=== PATIENT | male | born 1950 | race Caucasian/White ===

== ENCOUNTER 2021-08-22 16:47 | Inpatient (IN) ==
[2021-08-22] MEDS ORDERED: Artificial Tears SOLN 15 ML BOTTLE BOTH EYES PRN (19:22)
[2021-08-22] MEDS ORDERED: Amiodarone Premix 360 MG/200 ML BAG IVC ONE (19:34)
[2021-08-22] MEDS ORDERED: Naloxone 0.4 MG/ML INJ IVP PRN (19:37)
[2021-08-22] MEDS: FentaNYL (PF) 1,000 MCG/100 ML IV.SOLN IVC SCH (20:26)
[2021-08-22] MEDS: Amiodarone Premix 360 MG/200 ML BAG IVC ONE (20:26)
[2021-08-22 20:35] LABS: Hemoglobin 8.3 g/dL (12.9-16.9)
[2021-08-22 20:37] LABS: Hematocrit 32.4 % (37.5-50.1); Mean Corpuscular HGB Conc 25.6 g/dL (31.6-35.5); Mean Corpuscular Hemoglobin 26.7 pg (28.0-33.3); Mean Corpuscular Volume 104.2 fL (83.0-100.0); Mean Platelet Volume 9.5 fL (9.4-12.4); Platelet Count 433 K/mcL (140-400); Red Blood Count 3.11 M/mcL (4.19-5.50); Red Cell Distribution Width 17.5 % (11.5-14.5)
[2021-08-22 20:40] LABS: White Blood Count 41.5 K/mcL (4.3-11.1)
[2021-08-22 20:46] LABS: INR 1.4; Prothrombin Time 15.3 Seconds (9.4-12.1)
[2021-08-22 20:49] LABS: Activated Partial Thrombo Time 35.5 Seconds (26.0-36.0)
[2021-08-22 20:57] LABS: Albumin 3.4 g/dL (3.5-5.7); Albumin/Globulin Ratio 1.5 (1.1-2.2); Bilirubin,Direct 0.1 mg/dL (0.0-0.2); Bilirubin,Indirect 0.2 mg/dL (0.0-1.0); Bilirubin,Total 0.3 mg/dL (0.3-1.0); Calcium 8.6 mg/dL (8.6-10.3); Globulin 2.2 g/dL (2.4-3.5); Phosphorous 10.7 mg/dL (2.7-4.5); Potassium 7.4 mEq/L (3.5-5.1); Total Protein 5.6 g/dL (6.4-8.9)
[2021-08-22 21:09] LABS: Lymphocytes # 3.3 K/mcL (0.6-4.6); Monocytes # 2.5 K/mcL (0.0-1.3); Neutrophils # 35.7 K/mcL (1.6-8.9)
[2021-08-22 21:10] LABS: Hypochromasia Present (Not Present); Ovalocytes 1+ (Not Present)
[2021-08-22 21:12] LABS: Anisocytosis 1+ (Not Present)
[2021-08-22 21:18] LABS: ABG Base Excess -27 mEq/L (-2 to 3); ABG HCO3 4 mEq/L (21-27); ABG Oxygen Saturation 99 % (95-98); ABG PCO2 22 mmHg (35-45); ABG PH 6.91 pH Units (7.32-7.45); ABG PO2 185 mmHg (85-104); ABG TCO2 < 5 mEq/L (20-26); Blood Gas Modality AF; Blood Gas VT 500 cc
[2021-08-22] MEDS ORDERED: Furosemide 40 MG/4 ML VIAL IVP ONE (21:39)
[2021-08-22] MEDS: Norepinephrine 4 MG/254 ML IV.SOLN IVC SCH ×2 (21:43→23:32)
[2021-08-22] MEDS: Vasopressin 40 UNIT in D5% in Water 100 ML IVC SCH (21:43)
[2021-08-22] MEDS ORDERED: SODIUM ZIRCONIUM CYCLOSILICATE 5 GM POWD.PACK PO SCH (21:45)
[2021-08-22] MEDS: Chlorhexidine Rinse 15 ML MOUTHWASH MM SCH (21:46)
[2021-08-22] MEDS: Artificial Tears SOLN 15 ML BOTTLE BOTH EYES SCH ×2 (21:46→23:46)
[2021-08-22] MEDS ORDERED: Vancomycin 1,500 MG/265 ML IV.SOLN IVPB ONE (22:00)
[2021-08-22] MEDS: Albumin Human 5% 12.5 GM/250 ML IV.SOLN IVC SCH (22:10)
[2021-08-22] MEDS ORDERED: SODIUM ZIRCONIUM CYCLOSILICATE 5 GM POWD.PACK PO ONE (22:15)
[2021-08-22] MEDS ORDERED: Phenylephrine 10 MG in 0.9 % Sodium Chloride 250 ML IVC SCH (23:15)
[2021-08-22] MEDS: *HR* Heparin 5,000 UNIT/ML VIAL SQ SCH (23:31)
[2021-08-23] MEDS: Amiodarone Premix 360 MG/200 ML BAG IVC ONE (01:12)
[2021-08-23] MEDS: Norepinephrine 4 MG/254 ML IV.SOLN IVC SCH ×6 (01:23→16:19)
[2021-08-23] MEDS: Phenylephrine 50 MG in 0.9 % Sodium Chloride 250 ML IVC SCH ×3 (01:23→08:39)
[2021-08-23] MEDS: Albumin Human 5% 12.5 GM/250 ML IV.SOLN IVC SCH ×2 (01:35→02:56)
[2021-08-23 02:45] LABS: VBG Ionized Calcium 0.95 mmol/L (1.15-1.35)
[2021-08-23] MEDS ORDERED: Calcium Chloride 2,000 MG in 0.9 % Sodium Chloride 100 ML IVPB ONE (02:47)
[2021-08-23 02:48] LABS: Basophils % 0.2 %; Hemoglobin 7.4 g/dL (12.9-16.9); Immature Granulocytes % 3.5 % (0-4); Segmented Neutrophils % 86.6 %
[2021-08-23 02:49] LABS: Basophils # 0.1 K/mcL (0.0-0.2); Hematocrit 29.3 % (37.5-50.1); Lymphocytes # 1.5 K/mcL (0.6-4.6); Lymphocytes % 3.9 %; Mean Corpuscular HGB Conc 25.3 g/dL (31.6-35.5); Mean Corpuscular Hemoglobin 26.2 pg (28.0-33.3); Mean Corpuscular Volume 103.9 fL (83.0-100.0); Mean Platelet Volume 9.4 fL (9.4-12.4); Monocytes # 2.2 K/mcL (0.0-1.3); Monocytes % 5.8 %; Nucleated Red Blood Cells 0.1 /100 WBC (0); Platelet Count 387 K/mcL (140-400); Red Blood Count 2.82 M/mcL (4.19-5.50); Red Cell Distribution Width 17.2 % (11.5-14.5)
[2021-08-23 02:57] LABS: Neutrophils # 32.5 K/mcL (1.6-8.9)
[2021-08-23 02:58] LABS: White Blood Count 37.5 K/mcL (4.3-11.1)
[2021-08-23] MEDS: FentaNYL (PF) 1,000 MCG/100 ML IV.SOLN IVC SCH ×4 (03:02→20:00)
[2021-08-23] MEDS: Sodium Bicarbonate 150 MEQ in D5% in Water 1,000 ML IVC SCH ×3 (03:02→21:01)
[2021-08-23 03:14] LABS: Calcium 6.8 mg/dL (8.6-10.3); Magnesium 1.5 mg/dL (1.6-2.6); Potassium 5.4 mEq/L (3.5-5.1)
[2021-08-23] MEDS: Artificial Tears SOLN 15 ML BOTTLE BOTH EYES SCH ×5 (03:14→19:48)
[2021-08-23 03:27] LABS: Platelet Estimate Normal (Normal)
[2021-08-23 03:28] LABS: Hypochromasia Present (Not Present)
[2021-08-23] MEDS ORDERED: D5% in Water 1,000 ML IVC PRN (03:55)
[2021-08-23] MEDS ORDERED: *HR* Dextrose 50 % in Water (Syg) 50 ML SYRINGE IVP PRN (03:55)
[2021-08-23] MEDS ORDERED: Dextrose Gel 15 GM/37.5 ML TUBE PO PRN ×2 (03:55)
[2021-08-23] MEDS ORDERED: Hydrocortisone Sodium Succ 100 MG/2 ML VIAL IVP ONE (03:56)
[2021-08-23] MEDS: Insulin LISPRO 300 UNITS/3 ML VIAL SUBQ SCH ×5 (04:15→19:47)
[2021-08-23] MEDS: Dexmedetomidine HCl 400 MCG/100 ML MLS IVC SCH ×5 (04:15→21:57)
[2021-08-23 04:29] LABS: ABG Base Excess -25 mEq/L (-2 to 3); ABG HCO3 5 mEq/L (21-27); ABG Oxygen Saturation 99 % (95-98); ABG PCO2 22 mmHg (35-45); ABG PH 6.98 pH Units (7.32-7.45); ABG PO2 171 mmHg (85-104); ABG TCO2 6 mEq/L (20-26); Blood Gas Modality ASSIST CONTROL; Blood Gas VT 500 cc
[2021-08-23] MEDS: Amiodarone Premix 360 MG/200 ML BAG IVC SCH ×3 (04:40→20:00)
[2021-08-23 04:54] LABS: Adenovirus F 40/41 PCR Not detected (Not detect); Astrovirus PCR Not detected (Not detect); C.difficile Toxin A/B Gene PCR Not detected (Not detect); Campylobacter by PCR Not detected (Not detect); Cryptosporidium by PCR Not detected (Not detect); Cyclospora cayetanensis PCR Not detected (Not detect); Entamoeba histolytica PCR Not detected (Not detect); Enteroaggregative E.coli(EAEC) Not detected (Not detect); Enteropathogenic E.coli(EPEC) Not detected (Not detect); Enterotoxigenic E.coli (ETEC) Not detected (Not detect); Giardia lamblia PCR Not detected (Not detect); Norovirus GI/GII PCR Not detected (Not detect); Plesiomonas shigelloides PCR Not detected (Not detect); Rotavirus A PCR Not detected (Not detect); Salmonella PCR Not detected (Not detect); Sapovirus PCR Not detected (Not detect); Shig/EnteroinvasiveE coli EIEC Not detected (Not detect); Shigalike tox-prod E coli STEC Not detected (Not detect); Vibrio PCR Not detected (Not detect); Vibrio cholerae PCR Not detected (Not detect); Yersinia enterocolitica PCR Not detected (Not detect)
[2021-08-23] MEDS ORDERED: Amiodarone Premix 360 MG/200 ML BAG IVC ONE (07:34)
[2021-08-23] MEDS: *HR* Heparin 5,000 UNIT/ML VIAL SQ SCH ×2 (08:10→16:04)
[2021-08-23] MEDS: SODIUM ZIRCONIUM CYCLOSILICATE 5 GM POWD.PACK PO SCH ×2 (08:11→16:03)
[2021-08-23] MEDS: Chlorhexidine Rinse 15 ML MOUTHWASH MM SCH ×2 (08:11→19:48)
[2021-08-23] MEDS: Pantoprazole 40 MG VIAL IVP SCH (08:12)
[2021-08-23 08:38] LABS: Bacteria,Urine Few per hpf (None-Few); Bilirubin,Urine Negative (Negative); Blood,Urine Moderate (Negative); Clarity,Urine Turbid (Clear); Color,Urine Light-Yellow (Yellow); Glucose,Urine (UA) 70 mg/dL (Normal); Ketones,Urine 10 mg/dL (Negative); Leukocyte Esterase,Urine Moderate (Negative); Mucus,Urine Few per lpf (None-Few); Nitrite,Urine Negative (Negative); PH,Urine 5.5 pH Units (5.0-8.0); Protein,Urine 30 mg/dL (Neg-Trace); Renal Epithelial Cells,Urine Few per hpf (None-Few); Squamous Epithelial Cell,Urine Few per hpf (None-Few); Transitional Epi Cells,Urine Moderate per hpf (None-Few); Urobilinogen,Urine Normal (Normal); WBC,Urine 30-50 per hpf (0-3)
[2021-08-23 10:55] LABS: ABG Base Excess -15 mEq/L (-2 to 3); ABG HCO3 10 mEq/L (21-27); ABG Oxygen Saturation 98 % (95-98); ABG PCO2 20 mmHg (35-45); ABG PH 7.31 pH Units (7.32-7.45); ABG PO2 110 mmHg (85-104); ABG TCO2 11 mEq/L (20-26); Blood Gas Modality ASSIST CONTROL; Blood Gas VT 500 cc
[2021-08-23] MEDS ORDERED: Micafungin 100 MG in 0.9 % Sodium Chloride Mini Bag 100 ML IVPB SCH (12:00)
[2021-08-23] MEDS: Vasopressin 40 UNIT in D5% in Water 100 ML IVC SCH (13:54)
[2021-08-23] MEDS ORDERED: *HR* Heparin 5,000 UNIT/ML VIAL IVP PRN (15:30)
[2021-08-23] MEDS: Cefepime HCl 1,000 MG in Water for inj. (sterile) 10 ML IVP SCH (16:06)
[2021-08-23] MEDS ORDERED: 0.9 % Sodium Chloride 1,000 ML ONE (17:15)
[2021-08-23 17:52] LABS: Bacteria,Urine Few per hpf (None-Few); Bilirubin,Urine Negative (Negative); Blood,Urine Small (Negative); Clarity,Urine Clear (Clear); Color,Urine Colorless (Yellow); Glucose,Urine (UA) Normal (Normal); Ketones,Urine 10 mg/dL (Negative); Leukocyte Esterase,Urine Negative (Negative); Mucus,Urine Few per lpf (None-Few); Nitrite,Urine Negative (Negative); Protein,Urine Trace mg/dL (Neg-Trace); RBC,Urine 0-3 per hpf (0-3); Specific Gravity,Urine 1.009 (1.010-1.025); Urobilinogen,Urine Normal (Normal)
[2021-08-23 17:53] LABS: Sodium, Urine 100.9 mEq/L
[2021-08-23] MEDS: PrismaSATE BGK 4/2.5 5,000 ML CRRT SCH ×4 (18:00→21:59)
[2021-08-23 19:57] LABS: Calcium 7.8 mg/dL (8.6-10.3); Potassium 5.6 mEq/L (3.5-5.1)
[2021-08-23] MEDS ORDERED: Perflutren Lipid Microsphere 1.3 ML in 0.9 % Sodium Chloride 8.7 ML IVP PRN (20:30)
[2021-08-23] MEDS ORDERED: Meropenem 1,000 MG in 0.9 % Sodium Chloride Mini Bag 100 ML IVPB SCH ×2 (23:00)
[2021-08-24] MEDS: *HR* Heparin 5,000 UNIT/ML VIAL SQ SCH ×4 (00:35→23:35)
[2021-08-24] MEDS: Artificial Tears SOLN 15 ML BOTTLE BOTH EYES SCH ×7 (00:35→23:35)
[2021-08-24] MEDS: Insulin LISPRO 300 UNITS/3 ML VIAL SUBQ SCH ×6 (00:35→20:08)
[2021-08-24] MEDS: FentaNYL (PF) 1,000 MCG/100 ML IV.SOLN IVC SCH ×5 (00:35→20:50)
[2021-08-24] MEDS: PrismaSATE BGK 4/2.5 5,000 ML CRRT SCH ×12 (01:09→22:09)
[2021-08-24] MEDS: Dexmedetomidine HCl 400 MCG/100 ML MLS IVC SCH ×6 (01:30→20:09)
[2021-08-24] MEDS ORDERED: 0.9 % Sodium Chloride 2,000 ML ONE ×2 (02:25→14:12)
[2021-08-24] MEDS: Cefepime HCl 1,000 MG in Water for inj. (sterile) 10 ML IVP SCH (03:13)
[2021-08-24 03:23] LABS: VBG Ionized Calcium 0.93 mmol/L (1.15-1.35)
[2021-08-24 03:36] LABS: Albumin 3.2 g/dL (3.5-5.7); Bilirubin,Direct 0.1 mg/dL (0.0-0.2); Bilirubin,Indirect 0.4 mg/dL (0.0-1.0); Bilirubin,Total 0.5 mg/dL (0.3-1.0); Calcium 7.9 mg/dL (8.6-10.3); Globulin 1.6 g/dL (2.4-3.5); Magnesium 1.8 mg/dL (1.6-2.6); Potassium 4.6 mEq/L (3.5-5.1); Total Protein 4.8 g/dL (6.4-8.9)
[2021-08-24 04:10] LABS: Basophils % 0.2 %; Eosinophils % 0.2 %; Hematocrit 25.6 % (37.5-50.1); Hemoglobin 8.1 g/dL (12.9-16.9); Immature Granulocytes % 0.8 % (0-4); Lymphocytes # 0.4 K/mcL (0.6-4.6); Lymphocytes % 3.7 %; Mean Corpuscular HGB Conc 31.6 g/dL (31.6-35.5); Mean Corpuscular Hemoglobin 26.6 pg (28.0-33.3); Mean Corpuscular Volume 84.2 fL (83.0-100.0); Mean Platelet Volume 9.7 fL (9.4-12.4); Monocytes # 0.5 K/mcL (0.0-1.3); Monocytes % 4.5 %; Platelet Count 211 K/mcL (140-400); Red Blood Count 3.04 M/mcL (4.19-5.50); Red Cell Distribution Width 17.5 % (11.5-14.5); Segmented Neutrophils % 90.6 %
[2021-08-24 04:11] LABS: Neutrophils # 10.9 K/mcL (1.6-8.9)
[2021-08-24 04:21] LABS: ABG Base Excess -2 mEq/L (-2 to 3); ABG HCO3 19 mEq/L (21-27); ABG Oxygen Saturation 99 % (95-98); ABG PCO2 19 mmHg (35-45); ABG PH 7.61 pH Units (7.32-7.45); ABG PO2 90 mmHg (85-104); ABG TCO2 19 mEq/L (20-26); Blood Gas Modality ASSIST CONTROL; Blood Gas VT 500 cc
[2021-08-24] MEDS ORDERED: Calcium Chloride 2,000 MG in 0.9 % Sodium Chloride 100 ML IVPB ONE (05:00)
[2021-08-24] MEDS: Sodium Bicarbonate 150 MEQ in D5% in Water 1,000 ML IVC SCH (05:16)
[2021-08-24] MEDS: Vasopressin 40 UNIT in D5% in Water 100 ML IVC SCH (05:17)
[2021-08-24 06:06] LABS: ABG Base Excess -2 mEq/L (-2 to 3); ABG HCO3 21 mEq/L (21-27); ABG Oxygen Saturation 99 % (95-98); ABG PCO2 25 mmHg (35-45); ABG PH 7.53 pH Units (7.32-7.45); ABG PO2 115 mmHg (85-104); ABG TCO2 21 mEq/L (20-26); Blood Gas Modality ASSIST CONTROL; Blood Gas VT 500 cc
[2021-08-24] MEDS: Amiodarone Premix 360 MG/200 ML BAG IVC SCH (08:02)
[2021-08-24] MEDS: Micafungin 100 MG in 0.9 % Sodium Chloride Mini Bag 100 ML IVPB SCH (08:03)
[2021-08-24] MEDS: Chlorhexidine Rinse 15 ML MOUTHWASH MM SCH ×2 (08:11→20:08)
[2021-08-24] MEDS: Pantoprazole 40 MG VIAL IVP SCH (08:12)
[2021-08-24] MEDS: Cefepime HCl 2,000 MG in Water for inj. (sterile) 20 ML IVP SCH ×2 (08:15→20:08)
[2021-08-24] MEDS ORDERED: Vancomycin 1,750 MG/517.5 ML IV.SOLN IVPB ONE (09:00)
[2021-08-24] MEDS: Norepinephrine 4 MG/254 ML IV.SOLN IVC SCH ×3 (09:01→22:52)
[2021-08-24] MEDS ORDERED: *HR* Metoprolol 5 MG/5 ML VIAL IVP PRN (10:47)
[2021-08-25] MEDS: Dexmedetomidine HCl 400 MCG/100 ML MLS IVC SCH ×4 (00:03→17:28)
[2021-08-25] MEDS: Insulin LISPRO 300 UNITS/3 ML VIAL SUBQ SCH ×6 (00:08→20:13)
[2021-08-25] MEDS: FentaNYL (PF) 1,000 MCG/100 ML IV.SOLN IVC SCH ×2 (02:03→06:43)
[2021-08-25] MEDS: PrismaSATE BGK 4/2.5 5,000 ML CRRT SCH ×8 (02:04→14:26)
[2021-08-25] MEDS: Artificial Tears SOLN 15 ML BOTTLE BOTH EYES SCH ×5 (03:19→20:37)
[2021-08-25 03:35] LABS: VBG Ionized Calcium 1.06 mmol/L (1.15-1.35)
[2021-08-25 03:53] LABS: Basophils % 0.3 %; Eosinophils # 0.2 K/mcL (0.0-0.6); Eosinophils % 2.6 %; Hematocrit 25.2 % (37.5-50.1); Hemoglobin 7.3 g/dL (12.9-16.9); Immature Granulocytes % 0.5 % (0-4); Lymphocytes # 0.7 K/mcL (0.6-4.6); Lymphocytes % 7.3 %; Mean Corpuscular Hemoglobin 25.3 pg (28.0-33.3); Mean Corpuscular Volume 87.5 fL (83.0-100.0); Mean Platelet Volume 10.2 fL (9.4-12.4); Monocytes # 0.5 K/mcL (0.0-1.3); Neutrophils # 7.4 K/mcL (1.6-8.9); Platelet Count 157 K/mcL (140-400); Red Blood Count 2.88 M/mcL (4.19-5.50); Segmented Neutrophils % 83.3 %; White Blood Count 8.9 K/mcL (4.3-11.1)
[2021-08-25 04:18] LABS: Alanine Aminotransferase 7 Units/L (7-52); Albumin 2.7 g/dL (3.5-5.7); Albumin/Globulin Ratio 1.4 (1.1-2.2); Alkaline Phosphatase 83 Units/L (34-104); Aspartate Amino Transferase 11 Units/L (13-39); BUN/Creatinine Ratio 14 (6-26); Bilirubin,Direct 0.2 mg/dL (0.0-0.2); Bilirubin,Indirect 0.5 mg/dL (0.0-1.0); Bilirubin,Total 0.7 mg/dL (0.3-1.0); Blood Urea Nitrogen 15 mg/dL (8-23); Calcium 7.4 mg/dL (8.6-10.3); Carbon Dioxide 22 mEq/L (23-29); Chloride 105 mEq/L (98-107); Glucose 127 mg/dL (70-105); Magnesium 2.3 mg/dL (1.6-2.6); Osmolality,Calculated 286 (280-300); Phosphorous 1.2 mg/dL (2.7-4.5); Potassium 3.8 mEq/L (3.5-5.1); Sodium 137 mEq/L (136-145); Total Protein 4.7 g/dL (6.4-8.9); eGFR For African Americans > 60 (> 60); eGFR For Non-African Americans > 60 (> 60)
[2021-08-25 04:19] LABS: ABG Base Excess 1 mEq/L (-2 to 3); ABG HCO3 23 mEq/L (21-27); ABG Oxygen Saturation 98 % (95-98); ABG PCO2 25 mmHg (35-45); ABG PH 7.56 pH Units (7.32-7.45); ABG PO2 87 mmHg (85-104); ABG TCO2 23 mEq/L (20-26); Blood Gas Modality AF; Blood Gas VT 500 cc
[2021-08-25] MEDS: Calcium Gluconate 1gm/50mL 1 GM/50 ML BAG IVPB SCH ×2 (05:51→06:29)
[2021-08-25] MEDS ORDERED: 0.9 % Sodium Chloride 1,000 ML ONE ×2 (05:55→11:39)
[2021-08-25] MEDS: *HR* Heparin 5,000 UNIT/ML VIAL SQ SCH ×2 (08:01→17:12)
[2021-08-25] MEDS: Chlorhexidine Rinse 15 ML MOUTHWASH MM SCH ×2 (08:01→20:24)
[2021-08-25] MEDS: Cefepime HCl 2,000 MG in Water for inj. (sterile) 20 ML IVP SCH ×2 (08:01→20:24)
[2021-08-25] MEDS: Micafungin 100 MG in 0.9 % Sodium Chloride Mini Bag 100 ML IVPB SCH (08:02)
[2021-08-25] MEDS: Pantoprazole 40 MG VIAL IVP SCH (08:02)
[2021-08-25] MEDS ORDERED: Vancomycin 1,250 MG/262.5 ML IV.SOLN IVPB ONE (13:00)
[2021-08-25] MEDS: Norepinephrine 4 MG/254 ML IV.SOLN IVC SCH ×2 (13:07→20:11)
[2021-08-26] MEDS: Insulin LISPRO 300 UNITS/3 ML VIAL SUBQ SCH ×6 (00:35→19:41)
[2021-08-26] MEDS: *HR* Heparin 5,000 UNIT/ML VIAL SQ SCH ×3 (00:39→16:44)
[2021-08-26] MEDS: Artificial Tears SOLN 15 ML BOTTLE BOTH EYES SCH ×5 (00:40→16:35)
[2021-08-26] MEDS: Norepinephrine 4 MG/254 ML IV.SOLN IVC SCH (03:02)
[2021-08-26] MEDS: Dexmedetomidine HCl 400 MCG/100 ML MLS IVC SCH (04:35)
[2021-08-26 04:39] LABS: VBG Ionized Calcium 1.07 mmol/L (1.15-1.35)
[2021-08-26 04:42] LABS: Mean Platelet Volume 9.8 fL (9.4-12.4)
[2021-08-26 04:44] LABS: Basophils % 0.2 %; Eosinophils # 0.1 K/mcL (0.0-0.6); Hemoglobin 6.7 g/dL (12.9-16.9); Immature Granulocytes % 0.9 % (0-4); Lymphocytes # 0.6 K/mcL (0.6-4.6); Lymphocytes % 4.9 %; Mean Corpuscular HGB Conc 27.9 g/dL (31.6-35.5); Mean Corpuscular Hemoglobin 25.6 pg (28.0-33.3); Mean Corpuscular Volume 91.6 fL (83.0-100.0); Monocytes # 0.7 K/mcL (0.0-1.3); Monocytes % 6.4 %; Neutrophils # 9.9 K/mcL (1.6-8.9); Platelet Count 152 K/mcL (140-400); Red Blood Count 2.62 M/mcL (4.19-5.50); Red Cell Distribution Width 18.1 % (11.5-14.5); Segmented Neutrophils % 86.6 %; White Blood Count 11.4 K/mcL (4.3-11.1)
[2021-08-26 05:06] LABS: Albumin/Globulin Ratio 1.5 (1.1-2.2); Bilirubin,Direct 0.2 mg/dL (0.0-0.2); Bilirubin,Indirect 0.4 mg/dL (0.0-1.0); Bilirubin,Total 0.6 mg/dL (0.3-1.0); Calcium 7.8 mg/dL (8.6-10.3); Magnesium 2.2 mg/dL (1.6-2.6); Phosphorous 2.4 mg/dL (2.7-4.5); Potassium 3.7 mEq/L (3.5-5.1)
[2021-08-26 05:31] LABS: Anisocytosis 1+ (Not Present); Platelet Estimate Normal (Normal)
[2021-08-26] MEDS: Phenylephrine 50 MG in 0.9 % Sodium Chloride 250 ML IVC SCH (07:53)
[2021-08-26] MEDS ORDERED: 0.9 % Sodium Chloride 250 ML ONE (08:18)
[2021-08-26] MEDS: Chlorhexidine Rinse 15 ML MOUTHWASH MM SCH (08:26)
[2021-08-26] MEDS: Pantoprazole 40 MG VIAL IVP SCH (08:27)
[2021-08-26] MEDS: Cefepime HCl 2,000 MG in Water for inj. (sterile) 20 ML IVP SCH (08:27)
[2021-08-26] MEDS ORDERED: *HR* Metoprolol 5 MG/5 ML VIAL IVP PRN (17:18)
[2021-08-26] MEDS ORDERED: Naloxone 0.4 MG/ML INJ IVP PRN (17:18)
[2021-08-26] MEDS ORDERED: *HR* Dextrose 50 % in Water (Syg) 50 ML SYRINGE IVP PRN (17:18)
[2021-08-26] MEDS ORDERED: Dextrose Gel 15 GM/37.5 ML TUBE PO PRN ×2 (17:18)
[2021-08-26] MEDS ORDERED: D5% in Water 1,000 ML IVC PRN (17:18)
[2021-08-26] MEDS ORDERED: Artificial Tears SOLN 15 ML BOTTLE BOTH EYES PRN (17:18)
[2021-08-26 20:11] LABS: Hematocrit 24.7 % (37.5-50.1); Hemoglobin 7.2 g/dL (12.9-16.9)
[2021-08-27] MEDS: Acetaminophen 325 MG TABLET PO PRN ×2 (00:08→19:52)
[2021-08-27] MEDS: *HR* Heparin 5,000 UNIT/ML VIAL SQ SCH ×4 (00:09→23:58)
[2021-08-27 01:36] LABS: VBG Ionized Calcium 1.06 mmol/L (1.15-1.35)
[2021-08-27 01:36] LABS: Basophils % 0.2 %; Eosinophils # 0.1 K/mcL (0.0-0.6); Eosinophils % 1.7 %; Hematocrit 24.2 % (37.5-50.1); Hemoglobin 7.3 g/dL (12.9-16.9); Immature Granulocytes % 0.4 % (0-4); Lymphocytes # 0.4 K/mcL (0.6-4.6); Lymphocytes % 8.2 %; Mean Corpuscular HGB Conc 30.2 g/dL (31.6-35.5); Mean Corpuscular Hemoglobin 27.1 pg (28.0-33.3); Mean Platelet Volume 10.1 fL (9.4-12.4); Monocytes # 0.3 K/mcL (0.0-1.3); Monocytes % 6.1 %; Neutrophils # 4.4 K/mcL (1.6-8.9); Platelet Count 108 K/mcL (140-400); Red Blood Count 2.69 M/mcL (4.19-5.50); Red Cell Distribution Width 17.8 % (11.5-14.5); Segmented Neutrophils % 83.4 %; White Blood Count 5.3 K/mcL (4.3-11.1)
[2021-08-27 02:14] LABS: Albumin 2.8 g/dL (3.5-5.7); Albumin/Globulin Ratio 1.3 (1.1-2.2); Bilirubin,Direct 0.2 mg/dL (0.0-0.2); Bilirubin,Indirect 0.4 mg/dL (0.0-1.0); Bilirubin,Total 0.6 mg/dL (0.3-1.0); Calcium 7.7 mg/dL (8.6-10.3); Globulin 2.2 g/dL (2.4-3.5); Phosphorous 2.6 mg/dL (2.7-4.5); Potassium 3.3 mEq/L (3.5-5.1)
[2021-08-27] MEDS: Insulin LISPRO 300 UNITS/3 ML VIAL SUBQ SCH ×4 (07:29→21:44)
[2021-08-27] MEDS: Pantoprazole 40 MG VIAL IVP SCH (07:59)
[2021-08-27] MEDS ORDERED: Potassium Phosphate 44 MEQ in 0.9 % Sodium Chloride 250 ML IVPB ONE (17:12)
[2021-08-27] MEDS: Melatonin 3 MG TABLET PO SCH (18:37)
[2021-08-27] MEDS: Cholecalciferol (D-3) 1,000 UNIT (25MCG) TABLET PO SCH (19:52)
[2021-08-27] MEDS: valACYclovir 500 MG TABLET PO SCH (19:52)
[2021-08-27] MEDS: Gabapentin 300 MG CAPSULE PO SCH (19:53)
[2021-08-28 06:36] LABS: VBG Ionized Calcium 1.11 mmol/L (1.15-1.35)
[2021-08-28 06:40] LABS: Basophils % 0.2 %; Eosinophils # 0.2 K/mcL (0.0-0.6); Eosinophils % 2.7 %; Hemoglobin 7.1 g/dL (12.9-16.9); Immature Granulocytes % 0.5 % (0-4); Lymphocytes # 0.7 K/mcL (0.6-4.6); Lymphocytes % 11.9 %; Mean Corpuscular HGB Conc 29.6 g/dL (31.6-35.5); Mean Corpuscular Hemoglobin 26.9 pg (28.0-33.3); Mean Corpuscular Volume 90.9 fL (83.0-100.0); Mean Platelet Volume 10.5 fL (9.4-12.4); Monocytes # 0.4 K/mcL (0.0-1.3); Monocytes % 7.3 %; Neutrophils # 4.4 K/mcL (1.6-8.9); Platelet Count 134 K/mcL (140-400); Red Blood Count 2.64 M/mcL (4.19-5.50); Red Cell Distribution Width 17.6 % (11.5-14.5); Segmented Neutrophils % 77.4 %; White Blood Count 5.6 K/mcL (4.3-11.1)
[2021-08-28 06:51] LABS: Albumin 2.9 g/dL (3.5-5.7); Albumin/Globulin Ratio 1.5 (1.1-2.2); Bilirubin,Direct 0.2 mg/dL (0.0-0.2); Bilirubin,Indirect 0.3 mg/dL (0.0-1.0); Bilirubin,Total 0.5 mg/dL (0.3-1.0); Calcium 7.9 mg/dL (8.6-10.3); Magnesium 1.7 mg/dL (1.6-2.6); Phosphorous 3.6 mg/dL (2.7-4.5); Potassium 3.2 mEq/L (3.5-5.1); Total Protein 4.9 g/dL (6.4-8.9)
[2021-08-28] MEDS: Gabapentin 300 MG CAPSULE PO SCH ×2 (08:06→20:42)
[2021-08-28] MEDS: valACYclovir 500 MG TABLET PO SCH ×2 (08:06→20:42)
[2021-08-28] MEDS: Aspirin 81 MG TAB.CHEW PO SCH (08:06)
[2021-08-28] MEDS: Cyanocobalamin (B-12) 1,000 MCG TABLET PO SCH (08:06)
[2021-08-28] MEDS: Cholecalciferol (D-3) 1,000 UNIT (25MCG) TABLET PO SCH ×2 (08:06→20:42)
[2021-08-28] MEDS: Pantoprazole 40 MG VIAL IVP SCH (08:07)
[2021-08-28] MEDS: Metoprolol XL (24 HR) Succ 25 MG TAB.ER.24H PO SCH (08:07)
[2021-08-28] MEDS: *HR* Heparin 5,000 UNIT/ML VIAL SQ SCH ×3 (08:07→23:32)
[2021-08-28] MEDS: Insulin LISPRO 300 UNITS/3 ML VIAL SUBQ SCH ×4 (08:08→20:26)
[2021-08-28] MEDS ORDERED: Albumin 25% 25gram/100mL 25 GM/100 ML IV.SOLN IVPB SCH (16:00)
[2021-08-28] MEDS: Melatonin 3 MG TABLET PO SCH (16:43)
[2021-08-28] MEDS: Albumin 25% 25gram/100mL 25 GM/100 ML IV.SOLN IVPB SCH (18:04)
[2021-08-28] MEDS: Furosemide 40 MG/4 ML VIAL IVP SCH (20:42)
[2021-08-28] MEDS ORDERED: Furosemide 20 MG/2 ML VIAL IVP SCH (21:00)
[2021-08-29 02:31] LABS: Hemoglobin 7.5 g/dL (12.9-16.9); Lymphocytes % 13.4 %; Mean Corpuscular Volume 95.7 fL (83.0-100.0)
[2021-08-29 02:32] LABS: Basophils % 0.3 %; Eosinophils # 0.2 K/mcL (0.0-0.6); Eosinophils % 2.6 %; Hematocrit 26.6 % (37.5-50.1); Immature Granulocytes % 0.4 % (0-4); Mean Corpuscular HGB Conc 28.2 g/dL (31.6-35.5); Mean Platelet Volume 10.4 fL (9.4-12.4); Monocytes # 0.7 K/mcL (0.0-1.3); Neutrophils # 5.4 K/mcL (1.6-8.9); Platelet Count 147 K/mcL (140-400); Red Blood Count 2.78 M/mcL (4.19-5.50); Red Cell Distribution Width 18.1 % (11.5-14.5); Segmented Neutrophils % 74.3 %; White Blood Count 7.3 K/mcL (4.3-11.1)
[2021-08-29 02:34] LABS: VBG Ionized Calcium 0.78 mmol/L (1.15-1.35)
[2021-08-29 03:32] LABS: Bilirubin,Direct 0.1 mg/dL (0.0-0.2); Bilirubin,Indirect 0.3 mg/dL (0.0-1.0); Bilirubin,Total 0.4 mg/dL (0.3-1.0); Magnesium 1.8 mg/dL (1.6-2.6); Phosphorous 2.3 mg/dL (2.7-4.5); Potassium 3.4 mEq/L (3.5-5.1); Total Protein 5.3 g/dL (6.4-8.9)
[2021-08-29 03:33] LABS: Albumin 3.2 g/dL (3.5-5.7); Albumin/Globulin Ratio 1.5 (1.1-2.2); Calcium 7.7 mg/dL (8.6-10.3); Globulin 2.1 g/dL (2.4-3.5)
[2021-08-29] MEDS: Albumin 25% 25gram/100mL 25 GM/100 ML IV.SOLN IVPB SCH ×2 (05:38→17:39)
[2021-08-29] MEDS: Furosemide 40 MG/4 ML VIAL IVP SCH ×2 (09:05→20:22)
[2021-08-29] MEDS: *HR* Heparin 5,000 UNIT/ML VIAL SQ SCH ×3 (09:06→23:43)
[2021-08-29] MEDS: Cyanocobalamin (B-12) 1,000 MCG TABLET PO SCH (09:07)
[2021-08-29] MEDS: Cholecalciferol (D-3) 1,000 UNIT (25MCG) TABLET PO SCH ×2 (09:07→20:22)
[2021-08-29] MEDS: Aspirin 81 MG TAB.CHEW PO SCH (09:07)
[2021-08-29] MEDS: Metoprolol XL (24 HR) Succ 25 MG TAB.ER.24H PO SCH (09:07)
[2021-08-29] MEDS: valACYclovir 500 MG TABLET PO SCH ×2 (09:07→20:22)
[2021-08-29] MEDS: Gabapentin 300 MG CAPSULE PO SCH ×2 (09:08→20:22)
[2021-08-29] MEDS: Insulin LISPRO 300 UNITS/3 ML VIAL SUBQ SCH ×4 (09:35→20:25)
[2021-08-29] MEDS ORDERED: Calcium Gluconate 1gm/50mL 1 GM/50 ML BAG IVPB ONE (13:46)
[2021-08-29] MEDS: Melatonin 3 MG TABLET PO SCH (17:39)
[2021-08-30 05:33] LABS: VBG Ionized Calcium 1.01 mmol/L (1.15-1.35)
[2021-08-30 05:38] LABS: Hematocrit 22.2 % (37.5-50.1); Hemoglobin 6.5 g/dL (12.9-16.9)
[2021-08-30 05:51] LABS: BUN/Creatinine Ratio 11 (6-26); Blood Urea Nitrogen 15 mg/dL (8-23); Carbon Dioxide 27 mEq/L (23-29); Chloride 100 mEq/L (98-107); Glucose 164 mg/dL (70-105); Magnesium 1.4 mg/dL (1.6-2.6); Osmolality,Calculated 286 (280-300); Phosphorous 1.8 mg/dL (2.7-4.5); Potassium 3.3 mEq/L (3.5-5.1); Sodium 136 mEq/L (136-145); eGFR For African Americans > 60 (> 60); eGFR For Non-African Americans 51 (> 60)
[2021-08-30] MEDS ORDERED: 0.9 % Sodium Chloride 250 ML IVC SCH (07:30)
[2021-08-30] MEDS: Cyanocobalamin (B-12) 1,000 MCG TABLET PO SCH (07:49)
[2021-08-30] MEDS: valACYclovir 500 MG TABLET PO SCH ×2 (07:50→21:09)
[2021-08-30] MEDS: Cholecalciferol (D-3) 1,000 UNIT (25MCG) TABLET PO SCH ×2 (07:50→21:08)
[2021-08-30] MEDS: Aspirin 81 MG TAB.CHEW PO SCH (07:50)
[2021-08-30] MEDS: Metoprolol XL (24 HR) Succ 25 MG TAB.ER.24H PO SCH (07:50)
[2021-08-30] MEDS: Gabapentin 300 MG CAPSULE PO SCH ×2 (07:50→21:08)
[2021-08-30] MEDS: Insulin LISPRO 300 UNITS/3 ML VIAL SUBQ SCH ×4 (07:51→22:54)
[2021-08-30] MEDS: Furosemide 40 MG TABLET PO SCH ×2 (07:51→16:28)
[2021-08-30] MEDS ORDERED: Potassium Phosphate 44 MEQ in 0.9 % Sodium Chloride 250 ML IVPB ONE (12:30)
[2021-08-30] MEDS: Melatonin 3 MG TABLET PO SCH (16:28)
[2021-08-30 19:54] LABS: Hematocrit 25.1 % (37.5-50.1); Hemoglobin 7.3 g/dL (12.9-16.9)
[2021-08-30] MEDS: Acetaminophen 325 MG TABLET PO PRN (23:32)
[2021-08-31] MEDS: *HR* HYDROcodone/Acet 5/325 mg TABLET PO PRN ×2 (01:04→20:21)
[2021-08-31 01:44] LABS: Hematocrit 23.9 % (37.5-50.1); Hemoglobin 7.3 g/dL (12.9-16.9)
[2021-08-31 01:54] LABS: VBG Ionized Calcium 0.99 mmol/L (1.15-1.35)
[2021-08-31 02:04] LABS: Iron 35 mcg/dL (65-175)
[2021-08-31 02:05] LABS: BUN/Creatinine Ratio 13 (6-26); Blood Urea Nitrogen 17 mg/dL (8-23); Calcium 7.4 mg/dL (8.6-10.3); Carbon Dioxide 27 mEq/L (23-29); Chloride 97 mEq/L (98-107); Glucose 193 mg/dL (70-105); Magnesium 1.5 mg/dL (1.6-2.6); Osmolality,Calculated 281 (280-300); Phosphorous 3.1 mg/dL (2.7-4.5); Potassium 3.4 mEq/L (3.5-5.1); Sodium 132 mEq/L (136-145); eGFR For African Americans > 60 (> 60); eGFR For Non-African Americans 53 (> 60)
[2021-08-31 06:33] LABS: Hematocrit 23.4 % (37.5-50.1); Hemoglobin 6.8 g/dL (12.9-16.9)
[2021-08-31] MEDS ORDERED: 0.9 % Sodium Chloride 250 ML IVC SCH (07:45)
[2021-08-31] MEDS: Cyanocobalamin (B-12) 1,000 MCG TABLET PO SCH (08:10)
[2021-08-31] MEDS: Cholecalciferol (D-3) 1,000 UNIT (25MCG) TABLET PO SCH ×2 (08:10→20:21)
[2021-08-31] MEDS: Furosemide 40 MG TABLET PO SCH ×2 (08:10→16:56)
[2021-08-31] MEDS: Gabapentin 300 MG CAPSULE PO SCH ×2 (08:10→20:21)
[2021-08-31] MEDS: Metoprolol XL (24 HR) Succ 25 MG TAB.ER.24H PO SCH (08:10)
[2021-08-31] MEDS: valACYclovir 500 MG TABLET PO SCH ×2 (08:11→20:21)
[2021-08-31] MEDS: Insulin LISPRO 300 UNITS/3 ML VIAL SUBQ SCH ×4 (08:11→22:17)
[2021-08-31] MEDS: Melatonin 3 MG TABLET PO SCH (16:56)
[2021-08-31] MEDS: Acetaminophen 325 MG TABLET PO PRN (16:59)
[2021-08-31 17:06] LABS: Hemoglobin 8.1 g/dL (12.9-16.9)
[2021-08-31 18:58] LABS: Hematocrit 26.6 % (37.5-50.1)
[2021-09-01 03:39] LABS: Retculocyte # 0.1 M/mcL (0.05-0.10); Reticulocyte % 3.6 % (1.6-2.8)
[2021-09-01 03:40] LABS: Basophils % 0.3 %; Eosinophils # 0.2 K/mcL (0.0-0.6); Eosinophils % 2.1 %; Hematocrit 26.8 % (37.5-50.1); Lymphocytes # 0.5 K/mcL (0.6-4.6); Lymphocytes % 7.3 %; Mean Corpuscular HGB Conc 29.9 g/dL (31.6-35.5); Mean Corpuscular Hemoglobin 26.8 pg (28.0-33.3); Mean Corpuscular Volume 89.6 fL (83.0-100.0); Mean Platelet Volume 10.3 fL (9.4-12.4); Monocytes # 0.5 K/mcL (0.0-1.3); Monocytes % 6.6 %; Neutrophils # 5.9 K/mcL (1.6-8.9); Platelet Count 181 K/mcL (140-400); Red Blood Count 2.99 M/mcL (4.19-5.50); Red Cell Distribution Width 18.8 % (11.5-14.5); Segmented Neutrophils % 82.7 %; White Blood Count 7.1 K/mcL (4.3-11.1)
[2021-09-01 04:01] LABS: Magnesium 1.7 mg/dL (1.6-2.6); Phosphorous 2.6 mg/dL (2.7-4.5)
[2021-09-01 04:02] LABS: BUN/Creatinine Ratio 16 (6-26); Blood Urea Nitrogen 20 mg/dL (8-23); Calcium 7.9 mg/dL (8.6-10.3); Carbon Dioxide 28 mEq/L (23-29); Chloride 98 mEq/L (98-107); Glucose 161 mg/dL (70-105); Osmolality,Calculated 286 (280-300); Potassium 3.2 mEq/L (3.5-5.1); Sodium 135 mEq/L (136-145); eGFR For African Americans > 60 (> 60); eGFR For Non-African Americans 56 (> 60)
[2021-09-01 04:24] LABS: Folate 13.9 ng/mL (3.0-16.0)
[2021-09-01] MEDS: *HR* HYDROcodone/Acet 5/325 mg TABLET PO PRN ×2 (06:46→16:35)
[2021-09-01] MEDS: valACYclovir 500 MG TABLET PO SCH ×2 (08:07→20:15)
[2021-09-01] MEDS: Cholecalciferol (D-3) 1,000 UNIT (25MCG) TABLET PO SCH ×2 (08:07→20:15)
[2021-09-01] MEDS: Metoprolol XL (24 HR) Succ 25 MG TAB.ER.24H PO SCH (08:07)
[2021-09-01] MEDS: Gabapentin 300 MG CAPSULE PO SCH ×2 (08:07→20:15)
[2021-09-01] MEDS: Furosemide 40 MG TABLET PO SCH ×2 (08:08→16:35)
[2021-09-01] MEDS: Cyanocobalamin (B-12) 1,000 MCG TABLET PO SCH (08:09)
[2021-09-01] MEDS: Insulin LISPRO 300 UNITS/3 ML VIAL SUBQ SCH ×4 (08:13→20:15)
[2021-09-01] MEDS: Melatonin 3 MG TABLET PO SCH (20:15)
[2021-09-02] MEDS: *HR* HYDROcodone/Acet 5/325 mg TABLET PO PRN ×3 (01:01→20:36)
[2021-09-02 05:32] LABS: Basophils % 0.4 %; Eosinophils # 0.2 K/mcL (0.0-0.6); Eosinophils % 2.1 %; Hematocrit 25.4 % (37.5-50.1); Hemoglobin 7.7 g/dL (12.9-16.9); Lymphocytes # 0.6 K/mcL (0.6-4.6); Mean Corpuscular HGB Conc 30.3 g/dL (31.6-35.5); Mean Corpuscular Hemoglobin 27.3 pg (28.0-33.3); Mean Corpuscular Volume 90.1 fL (83.0-100.0); Mean Platelet Volume 9.9 fL (9.4-12.4); Monocytes # 0.5 K/mcL (0.0-1.3); Monocytes % 7.5 %; Neutrophils # 5.7 K/mcL (1.6-8.9); Platelet Count 181 K/mcL (140-400); Red Blood Count 2.82 M/mcL (4.19-5.50); Red Cell Distribution Width 18.9 % (11.5-14.5); White Blood Count 7.1 K/mcL (4.3-11.1)
[2021-09-02 05:49] LABS: Magnesium 1.4 mg/dL (1.6-2.6); Phosphorous 2.1 mg/dL (2.7-4.5)
[2021-09-02] MEDS: Furosemide 40 MG TABLET PO SCH ×2 (09:17→16:29)
[2021-09-02] MEDS: Metoprolol XL (24 HR) Succ 25 MG TAB.ER.24H PO SCH (09:17)
[2021-09-02] MEDS: valACYclovir 500 MG TABLET PO SCH ×2 (09:17→20:36)
[2021-09-02] MEDS: Cholecalciferol (D-3) 1,000 UNIT (25MCG) TABLET PO SCH ×2 (09:17→20:36)
[2021-09-02] MEDS: Gabapentin 300 MG CAPSULE PO SCH ×2 (09:18→20:36)
[2021-09-02] MEDS: Insulin LISPRO 300 UNITS/3 ML VIAL SUBQ SCH ×4 (09:26→20:37)
[2021-09-02] MEDS: Cyanocobalamin (B-12) 1,000 MCG TABLET PO SCH (09:26)
[2021-09-02] MEDS ORDERED: Iron Sucrose Complex 400 MG in 0.9 % Sodium Chloride 250 ML IVPB ONE (09:37)
[2021-09-02] MEDS: Melatonin 3 MG TABLET PO SCH (16:29)
[2021-09-02] MEDS: allopurinoL 100 MG TABLET PO SCH (20:36)
[2021-09-03 01:56] LABS: Basophils # 0.1 K/mcL (0.0-0.2); Basophils % 0.6 %; Eosinophils # 0.2 K/mcL (0.0-0.6); Eosinophils % 2.3 %; Hematocrit 27.6 % (37.5-50.1); Hemoglobin 8.3 g/dL (12.9-16.9); Immature Granulocytes % 1.1 % (0-4); Lymphocytes # 0.8 K/mcL (0.6-4.6); Lymphocytes % 9.4 %; Mean Corpuscular HGB Conc 30.1 g/dL (31.6-35.5); Mean Corpuscular Volume 93.2 fL (83.0-100.0); Mean Platelet Volume 10.5 fL (9.4-12.4); Monocytes # 0.7 K/mcL (0.0-1.3); Monocytes % 7.8 %; Neutrophils # 6.7 K/mcL (1.6-8.9); Platelet Count 201 K/mcL (140-400); Red Blood Count 2.96 M/mcL (4.19-5.50); Red Cell Distribution Width 19.5 % (11.5-14.5); Segmented Neutrophils % 78.8 %; White Blood Count 8.4 K/mcL (4.3-11.1)
[2021-09-03 02:14] LABS: BUN/Creatinine Ratio 15 (6-26); Blood Urea Nitrogen 18 mg/dL (8-23); Calcium 7.7 mg/dL (8.6-10.3); Carbon Dioxide 25 mEq/L (23-29); Chloride 99 mEq/L (98-107); Glucose 148 mg/dL (70-105); Magnesium 1.7 mg/dL (1.6-2.6); Osmolality,Calculated 287 (280-300); Phosphorous 2.1 mg/dL (2.7-4.5); Potassium 3.3 mEq/L (3.5-5.1); Sodium 136 mEq/L (136-145); eGFR For African Americans > 60 (> 60); eGFR For Non-African Americans > 60 (> 60)
[2021-09-03] MEDS: *HR* HYDROcodone/Acet 5/325 mg TABLET PO PRN ×2 (06:14→20:44)
[2021-09-03] MEDS: Metoprolol XL (24 HR) Succ 25 MG TAB.ER.24H PO SCH (08:19)
[2021-09-03] MEDS: valACYclovir 500 MG TABLET PO SCH ×2 (08:21→20:45)
[2021-09-03] MEDS: Cholecalciferol (D-3) 1,000 UNIT (25MCG) TABLET PO SCH ×2 (08:21→20:43)
[2021-09-03] MEDS: Cyanocobalamin (B-12) 1,000 MCG TABLET PO SCH (08:21)
[2021-09-03] MEDS: Furosemide 40 MG TABLET PO SCH ×2 (08:21→16:29)
[2021-09-03] MEDS: *HR* SitaGLIPtin 25 MG TABLET PO SCH (08:21)
[2021-09-03] MEDS: Gabapentin 300 MG CAPSULE PO SCH ×2 (08:22→20:45)
[2021-09-03] MEDS: Insulin LISPRO 300 UNITS/3 ML VIAL SUBQ SCH ×4 (08:39→20:49)
[2021-09-03 10:19] LABS: % Iron Saturation 12 % (20-55); Transferrin 216 mg/dL (200-400)
[2021-09-03] MEDS: allopurinoL 100 MG TABLET PO SCH (20:43)
[2021-09-03] MEDS: Melatonin 3 MG TABLET PO SCH (20:43)
[2021-09-03] MEDS: traZODone 50 MG TABLET PO SCH (20:44)
[2021-09-04 02:22] LABS: Basophils % 0.3 %; Eosinophils # 0.1 K/mcL (0.0-0.6); Eosinophils % 1.5 %; Hematocrit 25.3 % (37.5-50.1); Hemoglobin 7.8 g/dL (12.9-16.9); Immature Granulocytes % 1.3 % (0-4); Lymphocytes # 0.7 K/mcL (0.6-4.6); Lymphocytes % 8.3 %; Mean Corpuscular HGB Conc 30.8 g/dL (31.6-35.5); Mean Corpuscular Hemoglobin 28.3 pg (28.0-33.3); Mean Corpuscular Volume 91.7 fL (83.0-100.0); Mean Platelet Volume 10.3 fL (9.4-12.4); Monocytes # 0.5 K/mcL (0.0-1.3); Monocytes % 5.1 %; Neutrophils # 7.3 K/mcL (1.6-8.9); Platelet Count 210 K/mcL (140-400); Red Blood Count 2.76 M/mcL (4.19-5.50); Red Cell Distribution Width 19.8 % (11.5-14.5); Segmented Neutrophils % 83.5 %; White Blood Count 8.8 K/mcL (4.3-11.1)
[2021-09-04] MEDS: *HR* HYDROcodone/Acet 5/325 mg TABLET PO PRN ×2 (05:41→20:23)
[2021-09-04] MEDS: Cholecalciferol (D-3) 1,000 UNIT (25MCG) TABLET PO SCH ×2 (08:50→20:21)
[2021-09-04] MEDS: Cyanocobalamin (B-12) 1,000 MCG TABLET PO SCH (08:50)
[2021-09-04] MEDS: Metoprolol XL (24 HR) Succ 25 MG TAB.ER.24H PO SCH (08:52)
[2021-09-04] MEDS: valACYclovir 500 MG TABLET PO SCH ×2 (08:52→20:21)
[2021-09-04] MEDS: traZODone 50 MG TABLET PO SCH ×2 (08:52→20:22)
[2021-09-04] MEDS: Furosemide 40 MG TABLET PO SCH ×2 (08:53→16:24)
[2021-09-04] MEDS: Gabapentin 300 MG CAPSULE PO SCH ×2 (08:53→20:21)
[2021-09-04] MEDS: *HR* SitaGLIPtin 25 MG TABLET PO SCH (08:53)
[2021-09-04] MEDS: Insulin LISPRO 300 UNITS/3 ML VIAL SUBQ SCH ×4 (08:53→20:22)
[2021-09-04 16:04] LABS: BUN/Creatinine Ratio 17 (6-26); Blood Urea Nitrogen 21 mg/dL (8-23); Calcium 8.2 mg/dL (8.6-10.3); Carbon Dioxide 25 mEq/L (23-29); Chloride 99 mEq/L (98-107); Glucose 195 mg/dL (70-105); Osmolality,Calculated 288 (280-300); Potassium 3.2 mEq/L (3.5-5.1); Sodium 135 mEq/L (136-145); eGFR For African Americans > 60 (> 60); eGFR For Non-African Americans 57 (> 60)
[2021-09-04] MEDS: allopurinoL 100 MG TABLET PO SCH (20:21)
[2021-09-04] MEDS: Melatonin 3 MG TABLET PO SCH (20:21)
[2021-09-05] MEDS: *HR* HYDROcodone/Acet 5/325 mg TABLET PO PRN (05:08)
[2021-09-05] MEDS: *HR* SitaGLIPtin 25 MG TABLET PO SCH (08:28)
[2021-09-05] MEDS: traZODone 50 MG TABLET PO SCH (08:29)
[2021-09-05] MEDS: Metoprolol XL (24 HR) Succ 25 MG TAB.ER.24H PO SCH (08:31)
[2021-09-05] MEDS: Cholecalciferol (D-3) 1,000 UNIT (25MCG) TABLET PO SCH (08:31)
[2021-09-05] MEDS: valACYclovir 500 MG TABLET PO SCH (08:31)
[2021-09-05] MEDS: Gabapentin 300 MG CAPSULE PO SCH (08:32)
[2021-09-05] MEDS: Cyanocobalamin (B-12) 1,000 MCG TABLET PO SCH (08:32)
[2021-09-05] MEDS: Furosemide 40 MG TABLET PO SCH ×2 (08:32→15:15)
[2021-09-05] MEDS: Insulin LISPRO 300 UNITS/3 ML VIAL SUBQ SCH ×3 (08:33→17:26)
[2021-09-05 10:55] VITALS: BP 136/82; PULSE 92; TEMP 98.2; O2SAT 97
[2021-09-05 12:27] LABS: Adenovirus Not Detected (Not Detect); Bordetella Pertussis Not Detected (Not Detect); Chlamydophila pneumoniae Not Detected (Not Detect); Coronavirus 229E Not Detected (Not Detect); Coronavirus HKU1 Not Detected (Not Detect); Coronavirus NL63 Not Detected (Not Detect); Coronavirus OC43 Not Detected (Not Detect); Human Metapneumovirus Not Detected (Not Detect); Human Rhinovirus/Enterovirus Not Detected (Not Detect); Influenza A Subtype 2009 H1 Not Detected (Not Detect); Influenza B Not Detected (Not Detect); Mycoplasma pneumoniae Not Detected (Not Detect); Parainfluenza Virus 1 Not Detected (Not Detect); Parainfluenza Virus 2 Not Detected (Not Detect); Parainfluenza Virus 3 Not Detected (Not Detect); Parainfluenza Virus 4 Not Detected (Not Detect); Respiratory Syncytial Virus Not Detected (Not Detect); SARS-CoV-2 Not Detected (Not Detect)
== END 2021-09-05 17:43 | DRG 871 ==
LOC: ICNU 18:07 → SUATTDRO 18:07 → 2NNU 08-26 18:19 → 2ANU 08-28 14:37
PROVIDERS: ADMIT Pediatrics; ATTEND Internal Medicine

== ENCOUNTER 2021-10-21 12:23 | Inpatient (IN) ==
[2021-10-21] MEDS ORDERED: Naloxone 0.4 MG/ML INJ IVP PRN (16:15)
[2021-10-21] MEDS ORDERED: Mag Hydrox/Al Hydrox/Simeth 30 ML UDC PO PRN (16:15)
[2021-10-21] MEDS ORDERED: Ondansetron ODT 4 MG TAB.RAPDIS SL PRN (16:15)
[2021-10-21] MEDS ORDERED: Morphine Sulfate 2 MG/ML SYRINGE IVP PRN (16:20)
[2021-10-21] MEDS ORDERED: Melatonin 3 MG TABLET PO PRN (17:37)
[2021-10-21] MEDS ORDERED: Famotidine 20 MG TABLET PO PRN (17:37)
[2021-10-21] MEDS ORDERED: Artificial Tears SOLN 15 ML BOTTLE BOTH EYES PRN (17:56)
[2021-10-21] MEDS: Insulin LISPRO 300 UNITS/3 ML VIAL SUBQ SCH (17:59)
[2021-10-21] MEDS: 0.9 % Sodium Chloride 1,000 ML IVC SCH (18:16)
[2021-10-21] MEDS: Vancomycin 1,500 MG/265 ML IV.SOLN IVPB SCH (19:07)
[2021-10-21] MEDS: Gabapentin 300 MG CAPSULE PO SCH (20:17)
[2021-10-21] MEDS: Acetaminophen 325 MG TABLET PO PRN (20:18)
[2021-10-21] MEDS: *HR* OxyCODONE Immed Rel 5 MG TABLET PO PRN (20:18)
[2021-10-21] MEDS: valACYclovir 500 MG TABLET PO SCH (20:18)
[2021-10-22] MEDS: Piperacillin/Tazobactam 3.375 GM in 0.9 % Sodium Chloride Mini Bag 100 ML IVPB SCH ×4 (00:04→23:14)
[2021-10-22 03:45] LABS: Basophils % 0.4 %; Eosinophils # 0.2 K/mcL (0.0-0.6); Eosinophils % 2.3 %; Hematocrit 31.9 % (37.5-50.1); Hemoglobin 9.5 g/dL (12.9-16.9); Immature Granulocytes % 0.3 % (0-4); Lymphocytes # 1.1 K/mcL (0.6-4.6); Mean Corpuscular HGB Conc 29.8 g/dL (31.6-35.5); Mean Corpuscular Hemoglobin 30.3 pg (28.0-33.3); Mean Corpuscular Volume 101.6 fL (83.0-100.0); Mean Platelet Volume 10.7 fL (9.4-12.4); Monocytes # 0.6 K/mcL (0.0-1.3); Monocytes % 7.9 %; Neutrophils # 5.8 K/mcL (1.6-8.9); Platelet Count 143 K/mcL (140-400); Red Blood Count 3.14 M/mcL (4.19-5.50); Red Cell Distribution Width 18.7 % (11.5-14.5); Segmented Neutrophils % 75.1 %; White Blood Count 7.8 K/mcL (4.3-11.1)
[2021-10-22 04:11] LABS: Calcium 8.2 mg/dL (8.6-10.3); Potassium 4.3 mEq/L (3.5-5.1)
[2021-10-22] MEDS: *HR* Enoxaparin 40 MG/0.4 ML SYRINGE SQ SCH (05:44)
[2021-10-22] MEDS: Aspirin 81 MG TAB.CHEW PO SCH (09:07)
[2021-10-22] MEDS: Lactobacillus 1 EACH CAP.SPRINK PO SCH (09:08)
[2021-10-22] MEDS: Furosemide 40 MG TABLET PO SCH ×2 (09:08→16:06)
[2021-10-22] MEDS: hydroCHLOROthiazide 25 MG TABLET PO SCH (09:08)
[2021-10-22] MEDS: Metoprolol XL (24 HR) Succ 25 MG TAB.ER.24H PO SCH (09:08)
[2021-10-22] MEDS: Multivit/Ca/Min/Fe/FA 1 TAB TABLET PO SCH (09:08)
[2021-10-22] MEDS: Spironolactone 25 MG TABLET PO SCH (09:08)
[2021-10-22] MEDS: Gabapentin 300 MG CAPSULE PO SCH ×3 (09:08→19:42)
[2021-10-22] MEDS: valACYclovir 500 MG TABLET PO SCH ×2 (09:08→19:43)
[2021-10-22] MEDS: Insulin LISPRO 300 UNITS/3 ML VIAL SUBQ SCH ×3 (09:09→17:12)
[2021-10-22] MEDS: 0.9 % Sodium Chloride 1,000 ML IVC SCH (09:16)
[2021-10-22] MEDS: Vancomycin 1,500 MG/265 ML IV.SOLN IVPB SCH (17:59)
[2021-10-22] MEDS: *HR* OxyCODONE Immed Rel 5 MG TABLET PO PRN (21:25)
[2021-10-22] MEDS: Acetaminophen 325 MG TABLET PO PRN (21:25)
[2021-10-23 01:40] LABS: Basophils % 0.3 %; Eosinophils # 0.1 K/mcL (0.0-0.6); Eosinophils % 1.5 %; Hematocrit 33.2 % (37.5-50.1); Hemoglobin 9.7 g/dL (12.9-16.9); Immature Granulocytes % 0.9 % (0-4); Mean Corpuscular HGB Conc 29.2 g/dL (31.6-35.5); Mean Corpuscular Volume 99.4 fL (83.0-100.0); Mean Platelet Volume 10.6 fL (9.4-12.4); Monocytes # 0.5 K/mcL (0.0-1.3); Monocytes % 5.7 %; Neutrophils # 7.1 K/mcL (1.6-8.9); Platelet Count 147 K/mcL (140-400); Red Blood Count 3.34 M/mcL (4.19-5.50); Segmented Neutrophils % 80.6 %; White Blood Count 8.8 K/mcL (4.3-11.1)
[2021-10-23 02:02] LABS: BUN/Creatinine Ratio 28 (6-26); Blood Urea Nitrogen 36 mg/dL (8-23); Calcium 8.2 mg/dL (8.6-10.3); Carbon Dioxide 23 mEq/L (23-29); Chloride 102 mEq/L (98-107); Glucose 165 mg/dL (70-105); Osmolality,Calculated 290 (280-300); Potassium 4.4 mEq/L (3.5-5.1); Sodium 134 mEq/L (136-145); eGFR For African Americans > 60 (> 60); eGFR For Non-African Americans 54 (> 60)
[2021-10-23] MEDS: *HR* Enoxaparin 40 MG/0.4 ML SYRINGE SQ SCH (05:32)
[2021-10-23] MEDS: Lactobacillus 1 EACH CAP.SPRINK PO SCH (09:38)
[2021-10-23] MEDS: Piperacillin/Tazobactam 3.375 GM in 0.9 % Sodium Chloride Mini Bag 100 ML IVPB SCH ×2 (09:38→16:16)
[2021-10-23] MEDS: Spironolactone 25 MG TABLET PO SCH (09:38)
[2021-10-23] MEDS: Multivit/Ca/Min/Fe/FA 1 TAB TABLET PO SCH (09:38)
[2021-10-23] MEDS: hydroCHLOROthiazide 25 MG TABLET PO SCH (09:39)
[2021-10-23] MEDS: valACYclovir 500 MG TABLET PO SCH ×2 (09:39→22:34)
[2021-10-23] MEDS: Gabapentin 300 MG CAPSULE PO SCH ×3 (09:39→22:36)
[2021-10-23] MEDS: Aspirin 81 MG TAB.CHEW PO SCH (09:39)
[2021-10-23] MEDS: Metoprolol XL (24 HR) Succ 25 MG TAB.ER.24H PO SCH (09:40)
[2021-10-23] MEDS: Furosemide 40 MG TABLET PO SCH ×2 (09:40→16:16)
[2021-10-23] MEDS: Insulin LISPRO 300 UNITS/3 ML VIAL SUBQ SCH ×3 (10:01→17:41)
[2021-10-23] MEDS: 0.9 % Sodium Chloride 1,000 ML IVC SCH (14:07)
[2021-10-24] MEDS: Piperacillin/Tazobactam 3.375 GM in 0.9 % Sodium Chloride Mini Bag 100 ML IVPB SCH ×3 (00:17→16:39)
[2021-10-24] MEDS: *HR* OxyCODONE Immed Rel 5 MG TABLET PO PRN ×3 (01:09→20:24)
[2021-10-24 05:26] LABS: BUN/Creatinine Ratio 22 (6-26); Blood Urea Nitrogen 31 mg/dL (8-23); Calcium 8.7 mg/dL (8.6-10.3); Carbon Dioxide 24 mEq/L (23-29); Chloride 102 mEq/L (98-107); Glucose 177 mg/dL (70-105); Osmolality,Calculated 297 (280-300); Potassium 4.8 mEq/L (3.5-5.1); Sodium 138 mEq/L (136-145); eGFR For African Americans > 60 (> 60); eGFR For Non-African Americans 50 (> 60)
[2021-10-24 05:28] LABS: Basophils % 0.3 %; Eosinophils # 0.1 K/mcL (0.0-0.6); Eosinophils % 1.5 %; Hematocrit 32.3 % (37.5-50.1); Hemoglobin 9.9 g/dL (12.9-16.9); Immature Granulocytes % 0.6 % (0-4); Lymphocytes # 1.2 K/mcL (0.6-4.6); Lymphocytes % 13.1 %; Mean Corpuscular HGB Conc 30.7 g/dL (31.6-35.5); Mean Corpuscular Hemoglobin 29.8 pg (28.0-33.3); Mean Corpuscular Volume 97.3 fL (83.0-100.0); Mean Platelet Volume 10.8 fL (9.4-12.4); Monocytes # 0.6 K/mcL (0.0-1.3); Monocytes % 6.2 %; Neutrophils # 7.1 K/mcL (1.6-8.9); Platelet Count 151 K/mcL (140-400); Red Blood Count 3.32 M/mcL (4.19-5.50); Segmented Neutrophils % 78.3 %; White Blood Count 9.1 K/mcL (4.3-11.1)
[2021-10-24] MEDS: *HR* Enoxaparin 40 MG/0.4 ML SYRINGE SQ SCH (06:06)
[2021-10-24] MEDS: 0.9 % Sodium Chloride 1,000 ML IVC SCH (06:57)
[2021-10-24] MEDS: Furosemide 40 MG TABLET PO SCH ×2 (08:38→16:39)
[2021-10-24] MEDS: Multivit/Ca/Min/Fe/FA 1 TAB TABLET PO SCH (08:38)
[2021-10-24] MEDS: Spironolactone 25 MG TABLET PO SCH (08:38)
[2021-10-24] MEDS: Gabapentin 300 MG CAPSULE PO SCH ×3 (08:38→20:10)
[2021-10-24] MEDS: Aspirin 81 MG TAB.CHEW PO SCH (08:38)
[2021-10-24] MEDS: Metoprolol XL (24 HR) Succ 25 MG TAB.ER.24H PO SCH (08:39)
[2021-10-24] MEDS: hydroCHLOROthiazide 25 MG TABLET PO SCH (08:39)
[2021-10-24] MEDS: Lactobacillus 1 EACH CAP.SPRINK PO SCH (08:39)
[2021-10-24] MEDS: valACYclovir 500 MG TABLET PO SCH ×2 (08:39→20:05)
[2021-10-24] MEDS: Insulin LISPRO 300 UNITS/3 ML VIAL SUBQ SCH ×3 (08:52→16:46)
[2021-10-25] MEDS: Piperacillin/Tazobactam 3.375 GM in 0.9 % Sodium Chloride Mini Bag 100 ML IVPB SCH ×4 (00:36→23:42)
[2021-10-25] MEDS: *HR* Enoxaparin 40 MG/0.4 ML SYRINGE SQ SCH (05:51)
[2021-10-25] MEDS: Multivit/Ca/Min/Fe/FA 1 TAB TABLET PO SCH (08:04)
[2021-10-25] MEDS: hydroCHLOROthiazide 25 MG TABLET PO SCH (08:04)
[2021-10-25] MEDS: Furosemide 40 MG TABLET PO SCH ×2 (08:04→16:05)
[2021-10-25] MEDS: Gabapentin 300 MG CAPSULE PO SCH ×3 (08:05→21:54)
[2021-10-25] MEDS: valACYclovir 500 MG TABLET PO SCH ×2 (08:05→21:51)
[2021-10-25] MEDS: Lactobacillus 1 EACH CAP.SPRINK PO SCH (08:05)
[2021-10-25] MEDS: Aspirin 81 MG TAB.CHEW PO SCH (08:06)
[2021-10-25] MEDS: Metoprolol XL (24 HR) Succ 25 MG TAB.ER.24H PO SCH (08:06)
[2021-10-25] MEDS: *HR* OxyCODONE Immed Rel 5 MG TABLET PO PRN ×2 (08:39→21:49)
[2021-10-25] MEDS ORDERED: 0.9 % Sodium Chloride 1,000 ML ONE (10:35)
[2021-10-25] MEDS ORDERED: *HR* Heparin 10,000 UNIT/10 ML VIAL ONE (10:35)
[2021-10-25] MEDS ORDERED: Heparin 1,000 UNITS/500 mL 500 ML ONE ×2 (10:35→10:47)
[2021-10-25] MEDS ORDERED: *HR* Midazolam HCl 2 MG/2 ML VIAL ONE (10:42)
[2021-10-25] MEDS: Insulin LISPRO 300 UNITS/3 ML VIAL SUBQ SCH ×3 (12:28→16:24)
[2021-10-25 12:38] LABS: Basophils % 0.4 %; Eosinophils # 0.2 K/mcL (0.0-0.6); Eosinophils % 1.9 %; Hematocrit 32.3 % (37.5-50.1); Hemoglobin 9.8 g/dL (12.9-16.9); Immature Granulocytes % 0.5 % (0-4); Lymphocytes % 11.9 %; Mean Corpuscular HGB Conc 30.3 g/dL (31.6-35.5); Mean Corpuscular Hemoglobin 29.4 pg (28.0-33.3); Mean Platelet Volume 10.3 fL (9.4-12.4); Monocytes # 0.4 K/mcL (0.0-1.3); Monocytes % 5.5 %; Neutrophils # 6.4 K/mcL (1.6-8.9); Platelet Count 154 K/mcL (140-400); Red Blood Count 3.33 M/mcL (4.19-5.50); Red Cell Distribution Width 19.1 % (11.5-14.5); Segmented Neutrophils % 79.8 %; White Blood Count 8.1 K/mcL (4.3-11.1)
[2021-10-25 13:00] LABS: Calcium 9.1 mg/dL (8.6-10.3); Potassium 3.8 mEq/L (3.5-5.1)
[2021-10-25] MEDS: Acetaminophen 325 MG TABLET PO PRN (13:51)
[2021-10-25] MEDS ORDERED: allopurinoL 100 MG TABLET PO SCH (21:00)
[2021-10-25] MEDS: Cholecalciferol (D-3) 1,000 UNIT (25MCG) TABLET PO SCH (21:52)
[2021-10-26] MEDS: Acetaminophen 325 MG TABLET PO PRN (02:23)
[2021-10-26 04:42] LABS: Basophils % 0.4 %; Eosinophils # 0.2 K/mcL (0.0-0.6); Eosinophils % 1.7 %; Hematocrit 31.6 % (37.5-50.1); Hemoglobin 9.7 g/dL (12.9-16.9); Immature Granulocytes % 0.5 % (0-4); Lymphocytes # 1.3 K/mcL (0.6-4.6); Lymphocytes % 13.2 %; Mean Corpuscular HGB Conc 30.7 g/dL (31.6-35.5); Mean Corpuscular Hemoglobin 29.7 pg (28.0-33.3); Mean Corpuscular Volume 96.6 fL (83.0-100.0); Mean Platelet Volume 10.4 fL (9.4-12.4); Monocytes # 0.6 K/mcL (0.0-1.3); Monocytes % 6.1 %; Neutrophils # 7.4 K/mcL (1.6-8.9); Platelet Count 158 K/mcL (140-400); Red Blood Count 3.27 M/mcL (4.19-5.50); Red Cell Distribution Width 19.1 % (11.5-14.5); Segmented Neutrophils % 78.1 %; White Blood Count 9.5 K/mcL (4.3-11.1)
[2021-10-26 04:51] LABS: Calcium 8.5 mg/dL (8.6-10.3); Potassium 3.7 mEq/L (3.5-5.1)
[2021-10-26] MEDS: *HR* Enoxaparin 40 MG/0.4 ML SYRINGE SQ SCH (05:35)
[2021-10-26] MEDS: Cholecalciferol (D-3) 1,000 UNIT (25MCG) TABLET PO SCH ×2 (07:51→21:48)
[2021-10-26] MEDS: Aspirin 81 MG TAB.CHEW PO SCH (07:51)
[2021-10-26] MEDS: Multivit/Ca/Min/Fe/FA 1 TAB TABLET PO SCH (07:51)
[2021-10-26] MEDS: Lactobacillus 1 EACH CAP.SPRINK PO SCH (07:51)
[2021-10-26] MEDS: Furosemide 40 MG TABLET PO SCH ×2 (07:52→17:30)
[2021-10-26] MEDS: Gabapentin 300 MG CAPSULE PO SCH ×2 (07:52→21:48)
[2021-10-26] MEDS: valACYclovir 500 MG TABLET PO SCH ×2 (07:53→21:47)
[2021-10-26] MEDS: hydroCHLOROthiazide 25 MG TABLET PO SCH (07:53)
[2021-10-26] MEDS: Piperacillin/Tazobactam 3.375 GM in 0.9 % Sodium Chloride Mini Bag 100 ML IVPB SCH ×2 (07:53→17:29)
[2021-10-26] MEDS: Metoprolol XL (24 HR) Succ 25 MG TAB.ER.24H PO SCH (07:54)
[2021-10-26] MEDS: Insulin LISPRO 300 UNITS/3 ML VIAL SUBQ SCH ×3 (07:55→17:21)
[2021-10-26] MEDS ORDERED: Cyanocobalamin (B-12) 1,000 MCG TABLET PO SCH (09:00)
[2021-10-26] MEDS ORDERED: allopurinoL 300 MG TABLET PO SCH (09:00)
[2021-10-26] MEDS ORDERED: CeFAZolin Syr 3,000MG/30 ML 3,000 MG/30 ML SYRINGE IVPB ONE ×2 (13:35→15:15)
[2021-10-26] MEDS ORDERED: Ringers Solution, Lactated 1,000 ML IVC SCH ×2 (13:45→15:15)
[2021-10-26] MEDS ORDERED: *HR* Midazolam HCl 2 MG/2 ML VIAL ONE (14:11)
[2021-10-26] MEDS ORDERED: *HR* FentaNYL (PF) 100 MCG/2 ML VIAL ONE (14:11)
[2021-10-26] MEDS ORDERED: Naloxone 0.4 MG/ML INJ IVP PRN (15:15)
[2021-10-26] MEDS ORDERED: Famotidine 20 MG TABLET PO PRN (15:15)
[2021-10-26] MEDS ORDERED: Acetaminophen 325 MG TABLET PO PRN (15:15)
[2021-10-26] MEDS ORDERED: Artificial Tears SOLN 15 ML BOTTLE BOTH EYES PRN (15:15)
[2021-10-26] MEDS ORDERED: Ondansetron ODT 4 MG TAB.RAPDIS SL PRN (15:15)
[2021-10-26] MEDS ORDERED: Melatonin 3 MG TABLET PO PRN (15:15)
[2021-10-26] MEDS ORDERED: Mag Hydrox/Al Hydrox/Simeth 30 ML UDC PO PRN (15:15)
[2021-10-26] MEDS ORDERED: *HR* Propofol 200 MG/20 ML VIAL IVP ONE (15:23)
[2021-10-26] MEDS ORDERED: Vancomycin 500 MG in 0.9 % Sodium Chloride 250 ML IVPB ONE (20:00)
[2021-10-26] MEDS: Patient Taking Own Medication 1 EACH PO SCH (21:46)
[2021-10-26] MEDS: allopurinoL 100 MG TABLET PO SCH (21:47)
[2021-10-27] MEDS: Piperacillin/Tazobactam 3.375 GM in 0.9 % Sodium Chloride Mini Bag 100 ML IVPB SCH ×3 (00:36→18:01)
[2021-10-27 05:34] LABS: Basophils % 0.3 %; Eosinophils # 0.2 K/mcL (0.0-0.6); Eosinophils % 1.8 %; Hematocrit 30.6 % (37.5-50.1); Hemoglobin 9.4 g/dL (12.9-16.9); Immature Granulocytes % 0.5 % (0-4); Lymphocytes # 1.1 K/mcL (0.6-4.6); Lymphocytes % 11.4 %; Mean Corpuscular HGB Conc 30.7 g/dL (31.6-35.5); Mean Corpuscular Hemoglobin 30.8 pg (28.0-33.3); Mean Corpuscular Volume 100.3 fL (83.0-100.0); Mean Platelet Volume 10.3 fL (9.4-12.4); Monocytes # 0.5 K/mcL (0.0-1.3); Monocytes % 4.8 %; Neutrophils # 7.6 K/mcL (1.6-8.9); Platelet Count 166 K/mcL (140-400); Red Blood Count 3.05 M/mcL (4.19-5.50); Red Cell Distribution Width 19.4 % (11.5-14.5); Segmented Neutrophils % 81.2 %; White Blood Count 9.4 K/mcL (4.3-11.1)
[2021-10-27] MEDS: *HR* Enoxaparin 40 MG/0.4 ML SYRINGE SQ SCH (05:34)
[2021-10-27] MEDS: *HR* OxyCODONE Immed Rel 5 MG TABLET PO PRN ×2 (05:35→12:42)
[2021-10-27 06:03] LABS: Calcium 8.8 mg/dL (8.6-10.3); Potassium 3.1 mEq/L (3.5-5.1)
[2021-10-27] MEDS: allopurinoL 300 MG TABLET PO SCH (08:13)
[2021-10-27] MEDS: Cholecalciferol (D-3) 1,000 UNIT (25MCG) TABLET PO SCH ×2 (08:13→21:54)
[2021-10-27] MEDS: Aspirin 81 MG TAB.CHEW PO SCH (08:13)
[2021-10-27] MEDS: Patient Taking Own Medication 1 EACH PO SCH ×2 (08:14→22:06)
[2021-10-27] MEDS: valACYclovir 500 MG TABLET PO SCH ×2 (08:14→21:54)
[2021-10-27] MEDS: Furosemide 40 MG TABLET PO SCH ×2 (08:14→18:01)
[2021-10-27] MEDS: Gabapentin 300 MG CAPSULE PO SCH ×3 (08:15→21:57)
[2021-10-27] MEDS: Multivit/Ca/Min/Fe/FA 1 TAB TABLET PO SCH (08:15)
[2021-10-27] MEDS: Metoprolol XL (24 HR) Succ 25 MG TAB.ER.24H PO SCH (08:16)
[2021-10-27] MEDS: Lactobacillus 1 EACH CAP.SPRINK PO SCH (08:16)
[2021-10-27] MEDS: Insulin LISPRO 300 UNITS/3 ML VIAL SUBQ SCH ×3 (08:17→18:16)
[2021-10-27] MEDS: Cyanocobalamin (B-12) 1,000 MCG TABLET PO SCH (08:34)
[2021-10-27] MEDS: allopurinoL 100 MG TABLET PO SCH (21:54)
[2021-10-28] MEDS: *HR* OxyCODONE Immed Rel 5 MG TABLET PO PRN ×3 (01:53→18:11)
[2021-10-28] MEDS: Piperacillin/Tazobactam 3.375 GM in 0.9 % Sodium Chloride Mini Bag 100 ML IVPB SCH ×3 (02:26→15:45)
[2021-10-28] MEDS: *HR* Enoxaparin 40 MG/0.4 ML SYRINGE SQ SCH (06:38)
[2021-10-28 07:29] LABS: Basophils % 0.3 %; Eosinophils # 0.3 K/mcL (0.0-0.6); Eosinophils % 2.7 %; Hematocrit 24.5 % (37.5-50.1); Immature Granulocytes % 0.5 % (0-4); Lymphocytes # 1.5 K/mcL (0.6-4.6); Mean Corpuscular HGB Conc 30.6 g/dL (31.6-35.5); Mean Corpuscular Hemoglobin 30.5 pg (28.0-33.3); Mean Corpuscular Volume 99.6 fL (83.0-100.0); Mean Platelet Volume 10.6 fL (9.4-12.4); Monocytes # 0.8 K/mcL (0.0-1.3); Monocytes % 8.9 %; Neutrophils # 6.6 K/mcL (1.6-8.9); Platelet Count 158 K/mcL (140-400); Red Blood Count 2.46 M/mcL (4.19-5.50); Red Cell Distribution Width 19.6 % (11.5-14.5); Segmented Neutrophils % 71.6 %; White Blood Count 9.2 K/mcL (4.3-11.1)
[2021-10-28 07:32] LABS: Hemoglobin 7.5 g/dL (12.9-16.9)
[2021-10-28 07:49] LABS: Calcium 8.1 mg/dL (8.6-10.3); Potassium 3.5 mEq/L (3.5-5.1)
[2021-10-28] MEDS: Aspirin 81 MG TAB.CHEW PO SCH (09:38)
[2021-10-28] MEDS: Lactobacillus 1 EACH CAP.SPRINK PO SCH (09:38)
[2021-10-28] MEDS: allopurinoL 300 MG TABLET PO SCH (09:38)
[2021-10-28] MEDS: Metoprolol XL (24 HR) Succ 25 MG TAB.ER.24H PO SCH (09:38)
[2021-10-28] MEDS: Gabapentin 300 MG CAPSULE PO SCH ×3 (09:39→21:19)
[2021-10-28] MEDS: Cholecalciferol (D-3) 1,000 UNIT (25MCG) TABLET PO SCH ×2 (09:39→21:18)
[2021-10-28] MEDS: Multivit/Ca/Min/Fe/FA 1 TAB TABLET PO SCH (09:39)
[2021-10-28] MEDS: Furosemide 40 MG TABLET PO SCH ×2 (09:40→17:10)
[2021-10-28] MEDS: Patient Taking Own Medication 1 EACH PO SCH ×2 (09:42→18:07)
[2021-10-28] MEDS: Cyanocobalamin (B-12) 1,000 MCG TABLET PO SCH (09:46)
[2021-10-28] MEDS: Insulin LISPRO 300 UNITS/3 ML VIAL SUBQ SCH ×3 (09:49→17:06)
[2021-10-28] MEDS: valACYclovir 500 MG TABLET PO SCH ×2 (09:54→21:19)
[2021-10-28] MEDS: allopurinoL 100 MG TABLET PO SCH (21:18)
[2021-10-28] MEDS ORDERED: 0.9 % Sodium Chloride 250 ML ONE (22:28)
[2021-10-29] MEDS: Piperacillin/Tazobactam 3.375 GM in 0.9 % Sodium Chloride Mini Bag 100 ML IVPB SCH ×3 (00:48→15:54)
[2021-10-29] MEDS: *HR* Enoxaparin 40 MG/0.4 ML SYRINGE SQ SCH (05:54)
[2021-10-29] MEDS: Insulin LISPRO 300 UNITS/3 ML VIAL SUBQ SCH ×3 (07:42→16:59)
[2021-10-29] MEDS: Furosemide 40 MG TABLET PO SCH ×2 (07:50→16:59)
[2021-10-29] MEDS: Patient Taking Own Medication 1 EACH PO SCH ×2 (07:50→18:31)
[2021-10-29 09:14] LABS: Basophils # 0.1 K/mcL (0.0-0.2); Basophils % 0.4 %; Eosinophils # 0.3 K/mcL (0.0-0.6); Eosinophils % 2.8 %; Hematocrit 25.7 % (37.5-50.1); Hemoglobin 7.9 g/dL (12.9-16.9); Immature Granulocytes % 0.8 % (0-4); Lymphocytes # 1.3 K/mcL (0.6-4.6); Lymphocytes % 11.1 %; Mean Corpuscular HGB Conc 30.7 g/dL (31.6-35.5); Mean Corpuscular Volume 100.8 fL (83.0-100.0); Mean Platelet Volume 10.1 fL (9.4-12.4); Monocytes # 0.8 K/mcL (0.0-1.3); Monocytes % 6.5 %; Platelet Count 198 K/mcL (140-400); Red Blood Count 2.55 M/mcL (4.19-5.50); Red Cell Distribution Width 19.9 % (11.5-14.5); Segmented Neutrophils % 78.4 %; White Blood Count 11.5 K/mcL (4.3-11.1)
[2021-10-29 09:39] LABS: Calcium 8.5 mg/dL (8.6-10.3); Potassium 3.2 mEq/L (3.5-5.1)
[2021-10-29] MEDS: Aspirin 81 MG TAB.CHEW PO SCH (10:11)
[2021-10-29] MEDS: Metoprolol XL (24 HR) Succ 25 MG TAB.ER.24H PO SCH (10:11)
[2021-10-29] MEDS: valACYclovir 500 MG TABLET PO SCH ×2 (10:12→21:01)
[2021-10-29] MEDS: allopurinoL 300 MG TABLET PO SCH (10:12)
[2021-10-29] MEDS: Gabapentin 300 MG CAPSULE PO SCH ×3 (10:12→21:00)
[2021-10-29] MEDS: Lactobacillus 1 EACH CAP.SPRINK PO SCH (10:12)
[2021-10-29] MEDS: Multivit/Ca/Min/Fe/FA 1 TAB TABLET PO SCH (10:12)
[2021-10-29] MEDS: Cholecalciferol (D-3) 1,000 UNIT (25MCG) TABLET PO SCH ×2 (10:12→20:59)
[2021-10-29] MEDS: Cyanocobalamin (B-12) 1,000 MCG TABLET PO SCH (10:12)
[2021-10-29] MEDS: *HR* OxyCODONE Immed Rel 5 MG TABLET PO PRN (10:19)
[2021-10-29] MEDS: allopurinoL 100 MG TABLET PO SCH (21:00)
[2021-10-30] MEDS: Piperacillin/Tazobactam 3.375 GM in 0.9 % Sodium Chloride Mini Bag 100 ML IVPB SCH ×2 (00:25→07:49)
[2021-10-30] MEDS: *HR* Enoxaparin 40 MG/0.4 ML SYRINGE SQ SCH (05:23)
[2021-10-30 05:27] LABS: Basophils % 0.4 %; Eosinophils # 0.2 K/mcL (0.0-0.6); Eosinophils % 2.3 %; Hematocrit 24.1 % (37.5-50.1); Hemoglobin 7.4 g/dL (12.9-16.9); Immature Granulocytes % 0.8 % (0-4); Lymphocytes # 1.3 K/mcL (0.6-4.6); Lymphocytes % 13.8 %; Mean Corpuscular HGB Conc 30.7 g/dL (31.6-35.5); Mean Corpuscular Hemoglobin 30.2 pg (28.0-33.3); Mean Corpuscular Volume 98.4 fL (83.0-100.0); Mean Platelet Volume 10.8 fL (9.4-12.4); Monocytes # 0.6 K/mcL (0.0-1.3); Monocytes % 6.4 %; Neutrophils # 7.4 K/mcL (1.6-8.9); Platelet Count 167 K/mcL (140-400); Red Blood Count 2.45 M/mcL (4.19-5.50); Red Cell Distribution Width 20.2 % (11.5-14.5); Segmented Neutrophils % 76.3 %; White Blood Count 9.7 K/mcL (4.3-11.1)
[2021-10-30 05:38] LABS: Calcium 8.4 mg/dL (8.6-10.3); Potassium 3.9 mEq/L (3.5-5.1)
[2021-10-30] MEDS: Furosemide 40 MG TABLET PO SCH ×2 (07:48→16:07)
[2021-10-30] MEDS: Patient Taking Own Medication 1 EACH PO SCH ×2 (07:49→21:03)
[2021-10-30] MEDS: Insulin LISPRO 300 UNITS/3 ML VIAL SUBQ SCH ×3 (10:05→16:10)
[2021-10-30] MEDS: Multivit/Ca/Min/Fe/FA 1 TAB TABLET PO SCH (10:08)
[2021-10-30] MEDS: Gabapentin 300 MG CAPSULE PO SCH ×3 (10:08→21:01)
[2021-10-30] MEDS: Metoprolol XL (24 HR) Succ 25 MG TAB.ER.24H PO SCH (10:08)
[2021-10-30] MEDS: Cholecalciferol (D-3) 1,000 UNIT (25MCG) TABLET PO SCH ×2 (10:08→21:01)
[2021-10-30] MEDS: Cyanocobalamin (B-12) 1,000 MCG TABLET PO SCH (10:08)
[2021-10-30] MEDS: Aspirin 81 MG TAB.CHEW PO SCH (10:08)
[2021-10-30] MEDS: allopurinoL 300 MG TABLET PO SCH (10:08)
[2021-10-30] MEDS: Lactobacillus 1 EACH CAP.SPRINK PO SCH (10:08)
[2021-10-30] MEDS: valACYclovir 500 MG TABLET PO SCH ×2 (10:13→21:01)
[2021-10-30] MEDS: *HR* OxyCODONE Immed Rel 5 MG TABLET PO PRN ×2 (12:09→21:04)
[2021-10-30] MEDS: allopurinoL 100 MG TABLET PO SCH (21:02)
[2021-10-31 03:04] LABS: Calcium 8.1 mg/dL (8.6-10.3); Potassium 3.3 mEq/L (3.5-5.1)
[2021-10-31 03:55] VITALS: TEMP 97.8
[2021-10-31] MEDS: *HR* Enoxaparin 40 MG/0.4 ML SYRINGE SQ SCH (05:32)
[2021-10-31 05:54] LABS: Basophils % 0.4 %; Eosinophils # 0.2 K/mcL (0.0-0.6); Eosinophils % 2.4 %; Hematocrit 23.2 % (37.5-50.1); Hemoglobin 7.2 g/dL (12.9-16.9); Immature Granulocytes % 0.7 % (0-4); Lymphocytes # 1.3 K/mcL (0.6-4.6); Mean Corpuscular Volume 103.1 fL (83.0-100.0); Mean Platelet Volume 10.5 fL (9.4-12.4); Monocytes # 0.7 K/mcL (0.0-1.3); Monocytes % 7.2 %; Neutrophils # 7.3 K/mcL (1.6-8.9); Platelet Count 166 K/mcL (140-400); Red Blood Count 2.25 M/mcL (4.19-5.50); Red Cell Distribution Width 20.7 % (11.5-14.5); Segmented Neutrophils % 76.3 %; White Blood Count 9.6 K/mcL (4.3-11.1)
[2021-10-31 07:03] VITALS: BP 111/56; PULSE 87; O2SAT 94
[2021-10-31] MEDS: Patient Taking Own Medication 1 EACH PO SCH (07:42)
[2021-10-31] MEDS: Furosemide 40 MG TABLET PO SCH ×2 (07:42→17:32)
[2021-10-31] MEDS: Insulin LISPRO 300 UNITS/3 ML VIAL SUBQ SCH ×3 (07:43→17:33)
[2021-10-31] MEDS: Cyanocobalamin (B-12) 1,000 MCG TABLET PO SCH (10:11)
[2021-10-31] MEDS: valACYclovir 500 MG TABLET PO SCH (10:11)
[2021-10-31] MEDS: allopurinoL 300 MG TABLET PO SCH (10:11)
[2021-10-31] MEDS: Multivit/Ca/Min/Fe/FA 1 TAB TABLET PO SCH (10:11)
[2021-10-31] MEDS: Cholecalciferol (D-3) 1,000 UNIT (25MCG) TABLET PO SCH (10:11)
[2021-10-31] MEDS: Metoprolol XL (24 HR) Succ 25 MG TAB.ER.24H PO SCH (10:12)
[2021-10-31] MEDS: Aspirin 81 MG TAB.CHEW PO SCH (10:12)
[2021-10-31] MEDS: Lactobacillus 1 EACH CAP.SPRINK PO SCH (10:12)
[2021-10-31] MEDS: Gabapentin 300 MG CAPSULE PO SCH ×2 (10:12→15:31)
== END 2021-10-31 18:12 | disposition home health service (06) | DRG 623 ==
LOC: 3ANU → SUATTDRO 16:15
PROVIDERS: ADMIT Internal Medicine; ATTEND Family Medicine

== ENCOUNTER 2022-02-26 10:56 | Inpatient (IN) ==
[2022-02-26] MEDS ORDERED: Ondansetron 4 MG/2 ML VIAL IVP ONE (11:16)
[2022-02-26] MEDS ORDERED: 0.9 % Sodium Chloride 500 ML IVC ONE ×2 (11:27→15:34)
[2022-02-26 11:57] LABS: VBG HCO3 12 mEq/L (21-27); VBG PCO2 38 mmHg (41-51); VBG PO2 42 mmHg (25-50)
[2022-02-26 12:05] LABS: Basophils # 0.1 K/mcL (0.0-0.2); Basophils % 0.4 %; Eosinophils # 0.4 K/mcL (0.0-0.6); Eosinophils % 1.8 %; Hematocrit 33.9 % (37.5-50.1); Hemoglobin 10.3 g/dL (12.9-16.9); Immature Granulocytes % 3.8 % (0-4); Lymphocytes # 1.2 K/mcL (0.6-4.6); Mean Corpuscular HGB Conc 30.4 g/dL (31.6-35.5); Mean Corpuscular Hemoglobin 31.6 pg (28.0-33.3); Mean Platelet Volume 9.9 fL (9.4-12.4); Monocytes # 1.4 K/mcL (0.0-1.3); Monocytes % 5.7 %; Neutrophils # 20.8 K/mcL (1.6-8.9); Nucleated Red Blood Cells 0.1 /100 WBC (0); Platelet Count 438 K/mcL (140-400); Red Blood Count 3.26 M/mcL (4.19-5.50); Red Cell Distribution Width 19.9 % (11.5-14.5); Segmented Neutrophils % 83.3 %; White Blood Count 24.9 K/mcL (4.3-11.1)
[2022-02-26 12:11] LABS: INR 1.6
[2022-02-26 12:12] LABS: Activated Partial Thrombo Time 33.4 Seconds (26.0-36.0)
[2022-02-26] MEDS ORDERED: Azithromycin 500 MG in 0.9 % Sodium Chloride 250 ML IVPB ONE (12:14)
[2022-02-26] MEDS ORDERED: Cefepime HCl 2,000 MG in 0.9 % Sodium Chloride 10 ML IVP ONE (12:14)
[2022-02-26] MEDS ORDERED: 0.9 % Sodium Chloride 1,000 ML IVC ONE ×2 (12:16→16:54)
[2022-02-26 12:27] LABS: Influenza A PCR Negative (Negative); Influenza B PCR Negative (Negative); Resp. Syncytial Virus PCR Negative (Negative)
[2022-02-26 12:28] LABS: SARS-CoV-2 by PCR (In House) Negative (Negative)
[2022-02-26 12:35] LABS: BUN/Creatinine Ratio 33 (6-26); Bilirubin,Direct 0.1 mg/dL (0.0-0.2); Bilirubin,Total 0.5 mg/dL (0.3-1.0); Blood Urea Nitrogen 102 mg/dL (8-23); Calcium 9.6 mg/dL (8.6-10.3); Carbon Dioxide 11 mEq/L (23-29); Chloride 97 mEq/L (98-107); Glucose 113 mg/dL (70-105); Osmolality,Calculated 299 (280-300); Sodium 128 mEq/L (136-145); eGFR For African Americans 24 (> 60); eGFR For Non-African Americans 20 (> 60)
[2022-02-26 12:36] LABS: Alanine Aminotransferase 9 Units/L (7-52); Albumin 3.8 g/dL (3.5-5.7); Albumin/Globulin Ratio 1.4 (1.1-2.2); Alkaline Phosphatase 84 Units/L (34-104); Aspartate Amino Transferase 12 Units/L (13-39); Bilirubin,Indirect 0.4 mg/dL (0.0-1.0); Ethanol < 10 mg/dL (Less than 10); Globulin 2.7 g/dL (2.4-3.5); Lipase 10 Units/L (11-82); Thyroid Stimulating Hormone 6.716 mcIU/mL (0.340-5.600); Total Protein 6.5 g/dL (6.4-8.9); Troponin I < 0.03 ng/mL (< 0.04)
[2022-02-26] MEDS ORDERED: Albuterol Neb 7.5 MG, Sodium Chloride for inhalation 12 ML IH ONE (12:37)
[2022-02-26] MEDS ORDERED: Calcium Gluconate 1gm/50mL 1 GM/50 ML BAG IVPB ONE ×2 (12:37→17:47)
[2022-02-26] MEDS ORDERED: Vancomycin 1,750 MG/517.5 ML IV.SOLN IVPB ONE (13:00)
[2022-02-26 13:27] LABS: Amphetamine Screen,Urine Negative ng/mL (Cutoff=1000); Barbiturate Screen,Urine Negative ng/mL (Cutoff=200); Benzodiazepines Screen,Urine Negative ng/mL (Cutoff=200); Cannabinoid Screen,Urine Negative ng/mL (Cutoff = 50); Cocaine Screen,Urine Negative ng/mL (Cutoff= 300); Opiate Screen,Urine Positive ng/mL (Cutoff=300); Phencyclidine Screen,Urine Negative ng/mL (Cutoff=25)
[2022-02-26 13:43] VITALS: O2SAT 100
[2022-02-26] MEDS ORDERED: Sodium Bicarbonate 50 MEQ in 0.45 % Sodium Chloride 1,000 ML IVC SCH (13:45)
[2022-02-26 13:48] LABS: Bilirubin,Urine Small (Negative); Blood,Urine Moderate (Negative); Clarity,Urine Turbid (Clear); Color,Urine Yellow (Yellow); Glucose,Urine (UA) Normal (Normal); Ketones,Urine Negative (Negative); Leukocyte Esterase,Urine Large (Negative); Nitrite,Urine Negative (Negative); Protein,Urine 100 mg/dL (Neg-Trace); Specific Gravity,Urine >= 1.030 (1.010-1.025); Urobilinogen,Urine Normal (Normal)
[2022-02-26 14:00] LABS: RBC,Urine Present per hpf (0-3); WBC,Urine Present per hpf (0-3)
[2022-02-26 14:01] LABS: Bacteria,Urine Present per hpf (None-Few); Transitional Epi Cells,Urine Present per hpf (None-Few)
[2022-02-26] MEDS ORDERED: SODIUM ZIRCONIUM CYCLOSILICATE 5 GM POWD.PACK PO SCH (14:15)
[2022-02-26] MEDS ORDERED: Naloxone 0.4 MG/ML INJ IVP PRN (15:34)
[2022-02-26 16:23] LABS: Potassium 6.7 mEq/L (3.5-5.1)
[2022-02-26 16:56] LABS: Calcium 8.9 mg/dL (8.6-10.3); Potassium 6.8 mEq/L (3.5-5.1)
[2022-02-26] MEDS ORDERED: Vancomycin 1,750 MG/517.5 ML IV.SOLN IVPB SCH (17:00)
[2022-02-26 17:36] VITALS: TEMP 97.5
[2022-02-26] MEDS ORDERED: Sodium Bicarbonate 150 MEQ in Water for inj. (sterile) 1,000 ML IVC SCH (18:00)
[2022-02-26] MEDS ORDERED: Isovue-370 500 ML BOTTLE IVP ONE (18:29)
[2022-02-26 20:36] LABS: VBG HCO3 8 mEq/L (21-27); VBG PCO2 27 mmHg (41-51); VBG PH 7.07 pH Units (7.32-7.42); VBG PO2 78 mmHg (25-50)
[2022-02-26 20:52] LABS: Uric Acid 4.4 mg/dL (2.3-7.6)
[2022-02-26] MEDS ORDERED: *HR* LORazepam 2 MG/ML VIAL IVP PRN (22:44)
[2022-02-26] MEDS ORDERED: Morphine Sulfate 2 MG/ML SYRINGE IVP PRN (22:44)
[2022-02-26] MEDS ORDERED: Norepinephrine 4 MG/254 ML IV.SOLN IVC SCH (22:45)
[2022-02-26] MEDS ORDERED: Scopolamine Patch 1.5 MG PATCH.TD72 TD SCH (22:45)
[2022-02-26] MEDS ORDERED: Cefepime HCl 1,000 MG in 0.9 % Sodium Chloride Mini Bag 100 ML IVPB SCH (23:00)
[2022-02-26 23:30] VITALS: BP 123/97
[2022-02-26 23:40] VITALS: PULSE 116
[2022-02-27 00:58] LABS: Adenovirus F 40/41 PCR Not detected (Not detect); Astrovirus PCR Not detected (Not detect); C.difficile Toxin A/B Gene PCR Not detected (Not detect); Campylobacter by PCR Not detected (Not detect); Cryptosporidium by PCR Not detected (Not detect); Cyclospora cayetanensis PCR Not detected (Not detect); Entamoeba histolytica PCR Not detected (Not detect); Enteroaggregative E.coli(EAEC) Not detected (Not detect); Enteropathogenic E.coli(EPEC) Not detected (Not detect); Enterotoxigenic E.coli (ETEC) Not detected (Not detect); Giardia lamblia PCR Not detected (Not detect); Norovirus GI/GII PCR Not detected (Not detect); Plesiomonas shigelloides PCR Not detected (Not detect); Rotavirus A PCR Not detected (Not detect); Salmonella PCR Not detected (Not detect); Sapovirus PCR Not detected (Not detect); Shig/EnteroinvasiveE coli EIEC Not detected (Not detect); Shigalike tox-prod E coli STEC Not detected (Not detect); Vibrio PCR Not detected (Not detect); Vibrio cholerae PCR Not detected (Not detect); Yersinia enterocolitica PCR Not detected (Not detect)
[2022-02-27] MEDS ORDERED: SODIUM ZIRCONIUM CYCLOSILICATE 5 GM POWD.PACK PO ONE (18:52)
== END 2022-02-26 23:44 | disposition expired | DRG 871 ==
LOC: EMEROOARM 10:56 → 2NNU 10:56 → SUATTDRO 16:41 → 2NNU 17:20
PROVIDERS: ADMIT Internal Medicine; ATTEND Internal Medicine